=== PATIENT | female | born 1985 | race Caucasian/White ===

== ENCOUNTER 2018-09-30 23:54 | Emergency (ER) | payer OTHER ==
[2018-10-01] MEDS ORDERED: SODIUM CHLORIDE 0.9% 500 ML 500 ML IV STA (00:28)
[2018-10-01] MEDS ORDERED: SODIUM CHLORIDE 0.9% 1,000 ML IV STA (00:28)
--- NOTE | 2018-10-01 00:28 | ED ---
Psych HPI - General Source: patient, police, EMS, RN notes reviewed, old records reviewed Mode of arrival: ambulatory - History of Present Illness MD Complaint: suicidal ideation, feels depressed, other (Mildly responsive currently is a poor historian) -: unknown Associated Psychiatric Symptoms: depression, suicidal ideation History of same: Yes Quality: getting worse Improves With: none Worsens With: none Context: recent drug abuse Treatments Prior to Arrival: placed on mental health hold If Self Harm: has acted on plan <Jamie Larry - Last Filed: 10/01/18 03:44> <Raimundo Tanner - Last Filed: 10/01/18 15:46> - General Chief Complaint: Psychiatric Symptoms Stated Complaint: Mental Health Time Seen by Provider: 10/01/18 00:00 - History of Present Illness Initial Comments: This is a 33-year-old female the ER for evaluation. Patient has history of PTSD coming in with polysubstance overdose with suicide attempt. Patient overdosing on Xanax and alcohol. Patient is on was mildly responsive secondary to intoxication currently. But is protecting airway, good pulse ox (Jamie Larry) - Related Data Allergies Allergy/AdvReac Type Severity Reaction Status Date / Time No Known Allergies Allergy Verified 10/01/18 10:08 Review of Systems ROS Other: All systems not noted in ROS Statement are negative. <Jamie Larry - Last Filed: 10/01/18 03:44> ROS Other: All systems not noted in ROS Statement are negative. <Raimundo Tanner - Last Filed: 10/01/18 15:46> ROS Statement: Those systems with pertinent positive or pertinent negative responses have been documented in the HPI. Past Medical History Additional Past Medical History / Comment(s): anxiety History of Any Multi-Drug Resistant Organisms: None Reported Past Surgical History: No Surgical Hx Reported Past Psychological History: Anxiety Smoking Status: Current every day smoker Past Alcohol Use History: Occasional Past Drug Use History: None Reported <Jamie Larry - Last Filed: 10/01/18 03:44> General Exam Limitations: no limitations General appearance: alert, in no apparent distress, lethargic Head exam: Present: atraumatic, normocephalic, normal inspection Eye exam: Present: normal appearance, PERRL, EOMI. Absent: scleral icterus, conjunctival injection, periorbital swelling ENT exam: Present: normal exam, mucous membranes moist Neck exam: Present: normal inspection. Absent: tenderness, meningismus, lymphadenopathy Respiratory exam: Present: normal lung sounds bilaterally. Absent: respiratory distress, wheezes, rales, rhonchi, stridor Cardiovascular Exam: Present: regular rate, normal rhythm, normal heart sounds. Absent: systolic murmur, diastolic murmur, rubs, gallop, clicks GI/Abdominal exam: Present: soft, normal bowel sounds. Absent: distended, tenderness, guarding, rebound, rigid Extremities exam: Present: normal inspection, full ROM, normal capillary refill. Absent: tenderness, pedal edema, joint swelling, calf tenderness Back exam: Present: normal inspection Neurological exam: Present: alert, oriented X3, CN II-XII intact Psychiatric exam: Present: normal affect, normal mood Skin exam: Present: warm, dry, intact, normal color. Absent: rash <Jamie Larry - Last Filed: 10/01/18 03:44> Vital Signs 10/01/18 10/01/18 10/01/18 00:02 00:40 00:59 Temperature 98.2 F Pulse Rate 103 H 84 89 Respiratory 20 20 20 Rate Blood Pressure 126/78 109/62 104/69 O2 Sat by Pulse 99 100 98 Oximetry 10/01/18 10/01/18 10/01/18 01:06 02:00 03:00 Temperature Pulse Rate 84 81 85 Respiratory 20 20 20 Rate Blood Pressure 110/65 109/64 107/63 O2 Sat by Pulse 99 100 97 Oximetry 10/01/18 10/01/18 10/01/18 04:00 05:00 06:00 Temperature Pulse Rate 81 84 74 Respiratory 20 18 18 Rate Blood Pressure 118/80 117/65 118/84 O2 Sat by Pulse 98 97 100 Oximetry 10/01/18 10/01/18 10/01/18 07:00 10:45 13:03 Temperature 97.4 F L Pulse Rate 106 H 80 78 Respiratory 18 16 18 Rate Blood Pressure 125/85 111/73 105/75 O2 Sat by Pulse 97 99 98 Oximetry Medical Decision Making - Lab Data Result diagrams: 10/01/18 00:15 10/01/18 00:15 - EKG Data -: EKG Interpreted by Me (EKG shows sinus rhythm rate of 84, MT 184, QRS 76, QTc 449) <Jamie Larry - Last Filed: 10/01/18 03:44> - Lab Data Result diagrams: 10/01/18 00:15 10/01/18 00:15 <Raimundo Tanner - Last Filed: 10/01/18 15:46> - Medical Decision Making Patient sent out to me by previous shift physician. Briefly, patient is a 33- year-old female presents with suicidal intent. She overdosed on multiple medications. He was pending sobriety and EPS recommendations. Patient is high suicide risk given mild AND attending today. Patient was sent by . Patient to be admitted to inpatient psychiatry. Likely, transferr to outside facility (Raimundo Tanner) - Lab Data Lab Results 10/01/18 10/01/18 10/01/18 Range/Units 00:15 00:15 00:15 WBC 7.5 (3.8-10.6) k/uL RBC 4.37 (3.80-5.40) m/uL Hgb 13.4 (11.4-16.0) gm/dL Hct 40.4 (34.0-46.0) % MCV 92.5 (80.0-100.0) fL MCH 30.7 (25.0-35.0) pg MCHC 33.1 (31.0-37.0) g/dL RDW 12.8 (11.5-15.5) % Plt Count 199 (150-450) k/uL Neutrophils % 62 % Lymphocytes % 31 % Monocytes % 4 % Eosinophils % 1 % Basophils % 1 % Neutrophils # 4.6 (1.3-7.7) k/uL Lymphocytes # 2.3 (1.0-4.8) k/uL Monocytes # 0.3 (0-1.0) k/uL Eosinophils # 0.1 (0-0.7) k/uL Basophils # 0.1 (0-0.2) k/uL PT (9.0-12.0) sec INR (<1.2) Sodium 144 (137-145) mmol/L Potassium 3.8 (3.5-5.1) mmol/L Chloride 111 H (98-107) mmol/L Carbon Dioxide 25 (22-30) mmol/L Anion Gap 8 mmol/L BUN 6 L (7-17) mg/dL Creatinine 0.62 (0.52-1.04) mg/dL Est GFR (CKD-EPI)AfAm >90 (>60 ml/min/1.73 sqM) Est GFR (CKD-EPI)NonAf >90 (>60 ml/min/1.73 sqM) Glucose 90 (74-99) mg/dL Calcium 9.1 (8.4-10.2) mg/dL Total Bilirubin 0.4 (0.2-1.3) mg/dL AST 20 (14-36) U/L ALT 23 (9-52) U/L Alkaline Phosphatase 35 L (38-126) U/L Total Creatine Kinase 153 H (30-135) U/L CK-MB (CK-2) 0.7 (0.0-2.4) ng/mL CK-MB (CK-2) Rel Index 0.5 Total Protein 6.9 (6.3-8.2) g/dL Albumin 4.3 (3.5-5.0) g/dL Urine HCG, Qual (Not Detectd) Salicylates <1.0 mg/dL Urine Opiates Screen (NotDetected) Ur Oxycodone Screen (NotDetected) Urine Methadone Screen (NotDetected) Ur Propoxyphene Screen (NotDetected) Acetaminophen <10.0 ug/mL Ur Barbiturates Screen (NotDetected) U Tricyclic Antidepress (NotDetected) Ur Phencyclidine Scrn (NotDetected) Ur Amphetamines Screen (NotDetected) U Methamphetamines Scrn (NotDetected) U Benzodiazepines Scrn (NotDetected) Urine Cocaine Screen (NotDetected) U Marijuana (THC) Screen (NotDetected) Serum Alcohol 192 mg/dL 10/01/18 10/01/18 10/01/18 Range/Units 00:15 00:30 00:30 WBC (3.8-10.6) k/uL RBC (3.80-5.40) m/uL Hgb (11.4-16.0) gm/dL Hct (34.0-46.0) % MCV (80.0-100.0) fL MCH (25.0-35.0) pg MCHC (31.0-37.0) g/dL RDW (11.5-15.5) % Plt Count (150-450) k/uL Neutrophils % % Lymphocytes % % Monocytes % % Eosinophils % % Basophils % % Neutrophils # (1.3-7.7) k/uL Lymphocytes # (1.0-4.8) k/uL Monocytes # (0-1.0) k/uL Eosinophils # (0-0.7) k/uL Basophils # (0-0.2) k/uL PT 11.0 (9.0-12.0) sec INR 1.0 (<1.2) Sodium (137-145) mmol/L Potassium (3.5-5.1) mmol/L Chloride (98-107) mmol/L Carbon Dioxide (22-30) mmol/L Anion Gap mmol/L BUN (7-17) mg/dL Creatinine (0.52-1.04) mg/dL Est GFR (CKD-EPI)AfAm (>60 ml/min/1.73 sqM) Est GFR (CKD-EPI)NonAf (>60 ml/min/1.73 sqM) Glucose (74-99) mg/dL Calcium (8.4-10.2) mg/dL Total Bilirubin (0.2-1.3) mg/dL AST (14-36) U/L ALT (9-52) U/L Alkaline Phosphatase (38-126) U/L Total Creatine Kinase (30-135) U/L CK-MB (CK-2) (0.0-2.4) ng/mL CK-MB (CK-2) Rel Index Total Protein (6.3-8.2) g/dL Albumin (3.5-5.0) g/dL Urine HCG, Qual Not Detected (Not Detectd) Salicylates mg/dL Urine Opiates Screen Not Detected (NotDetected) Ur Oxycodone Screen Not Detected (NotDetected) Urine Methadone Screen Not Detected (NotDetected) Ur Propoxyphene Screen Not Detected (NotDetected) Acetaminophen ug/mL Ur Barbiturates Screen Not Detected (NotDetected) U Tricyclic Antidepress Not Detected (NotDetected) Ur Phencyclidine Scrn Not Detected (NotDetected) Ur Amphetamines Screen Not Detected (NotDetected) U Methamphetamines Scrn Not Detected (NotDetected) U Benzodiazepines Scrn Detected H (NotDetected) Urine Cocaine Screen Not Detected (NotDetected) U Marijuana (THC) Screen Not Detected (NotDetected) Serum Alcohol mg/dL Disposition <Jamie Larry - Last Filed: 10/01/18 03:44> Time of Disposition: 15:46 - Out of Hospital Transfer - Req. Specs Out of Hospital Transfer - Requested Specifics: Other Non-Acute (psych unit) <Raimundo Tanner - Last Filed: 10/01/18 15:46> Clinical Impression: Suicide attempt Disposition: TRANSFER TO PSYCH HOSP/UNIT Condition: Fair Referrals: None,Stated [REFERRING] - 1-2 days
[2018-10-01 00:39] LABS: Basophils # (A) 0.1 k/uL (0-0.2); Basophils % (A) 1 %; Eosinophils # (A) 0.1 k/uL (0-0.7); Eosinophils % (A) 1 %; HCT 40.4 % (34.0-46.0); HGB 13.4 gm/dL (11.4-16.0); Lymphocytes # (A) 2.3 k/uL (1.0-4.8); Lymphocytes % (A) 31 %; MCH 30.7 pg (25.0-35.0); MCHC 33.1 g/dL (31.0-37.0); MCV 92.5 fL (80.0-100.0); Mean Platelet Volume 6.9; Monocytes # (A) 0.3 k/uL (0-1.0); Monocytes % (A) 4 %; Neutrophils # (A) 4.6 k/uL (1.3-7.7); Neutrophils % (A) 62 %; Platelet Count 199 k/uL (150-450); RBC 4.37 m/uL (3.80-5.40); RDW 12.8 % (11.5-15.5); WBC 7.5 k/uL (3.8-10.6)
[2018-10-01 00:51] LABS: ALT 23 U/L (9-52); AST 20 U/L (14-36); Acetaminophen <10.0 ug/mL; Albumin 4.3 g/dL (3.5-5.0); Alkaline Phosphatase 35 U/L (38-126); Anion Gap 8 mmol/L; Blood Urea Nitrogen 6 mg/dL (7-17); Calcium 9.1 mg/dL (8.4-10.2); Carbon Dioxide 25 mmol/L (22-30); Chloride 111 mmol/L (98-107); Glucose 90 mg/dL (74-99); Potassium 3.8 mmol/L (3.5-5.1); Salicylate <1.0 mg/dL; Sodium 144 mmol/L (137-145); Total Bilirubin 0.4 mg/dL (0.2-1.3); Total Protein 6.9 g/dL (6.3-8.2)
[2018-10-01 00:54] LABS: Alcohol 192 mg/dL
[2018-10-01 01:07] LABS: Amphetamine Screen,Urine Not Detected (NotDetected); Barbiturate Screen,Urine Not Detected (NotDetected); Benzodiazepines Screen,Urine Detected (NotDetected); Cocaine Screen,Urine Not Detected (NotDetected); Methadone Screen, Urine Not Detected (NotDetected); Opiate Screen,Urine Not Detected (NotDetected); Oxycodone Screen, Urine Not Detected (NotDetected); Phencyclidine Screen,Urine Not Detected (NotDetected); Tricyclic Antidepressant,Urine Not Detected (NotDetected); Urn Cannabinoid Scrn Not Detected (NotDetected)
[2018-10-01 01:09] LABS: Creatine Kinase MB 0.7 ng/mL (0.0-2.4)
[2018-10-01 07:02] VITALS: TEMP 97.4
[2018-10-01] MEDS ORDERED: NICOTINE 21MG/24HR PATCH TRANSDERM STA (16:58)
[2018-10-01 19:56] VITALS: BP 128/64; PULSE 102; RESP 14
== END 2018-10-01 22:00 ==
LOC: EC 23:54
DX: T42.4X2A Poisoning by benzodiazepines, intentional self-harm, initial encounter (principal); T51.92XA Toxic effect of unspecified alcohol, intentional self-harm, initial encounter; F32.9 Major depressive disorder, single episode, unspecified; F17.200 Nicotine dependence, unspecified, uncomplicated
CPT/HCPCS: 99285; 96360; 82075; 36415; 93005; 80053; 82550; 82553; 85025; 85610; 81025; 80306; 83520 ×2; 80320; S4990

== ENCOUNTER 2019-05-28 04:58 | Inpatient (IN) | payer OTHER ==
[2019-05-28] MEDS ORDERED: SODIUM CHLORIDE 0.9% 1,000 ML IV STA (05:05)
--- NOTE | 2019-05-28 05:15 | ED ---
Altered Mental Status HPI - General Stated Complaint: Overdose Time Seen by Provider: 05/28/19 05:05 Source: EMS Limitations: altered mental status - History of Present Illness Initial Comments: Patient is a 33-year-old woman brought by ambulance to be evaluated for altered mental status. It is reported that she had history of appearing similar when she had had an overdose of alcohol and Xanax.. She reportedly has history of PTSD and may have had suicide attempt on the previous occasion. The patient is not able to give history. History is from EMS to also reports that the patient does not have access to medications at home patient's family reportedly controls her access. She had reportedly been drinking earlier. MD Complaint: altered mental status -: unknown Severity: severe Context: history of similar presentation - Related Data Home Medications Medication Instructions Recorded Confirmed ALPRAZolam [Xanax] 0.25 mg PO DAILY PRN 05/28/19 05/28/19 FLUoxetine HCL [PROzac] 40 mg PO DAILY 05/28/19 05/28/19 Medroxyprogesterone Acetate 150 mg IM Q90D 05/28/19 05/28/19 [Depo-Provera] Allergies Allergy/AdvReac Type Severity Reaction Status Date / Time No Known Allergies Allergy Verified 05/28/19 09:26 Review of Systems ROS Statement: Those systems with pertinent positive or pertinent negative responses have been documented in the HPI. ROS Other: All systems not noted in ROS Statement are negative. Gastrointestinal: Reports: vomiting Psychiatric: Reports: suicidal thoughts, other (PTSD) Past Medical History Additional Past Medical History / Comment(s): anxiety History of Any Multi-Drug Resistant Organisms: None Reported Past Surgical History: No Surgical Hx Reported Past Psychological History: Anxiety Smoking Status: Current every day smoker Past Alcohol Use History: Occasional Past Drug Use History: None Reported - Past Family History Father Family Medical History: Coronary Artery Disease (CAD) Additional Family Medical History / Comment(s): Father has had coronary stents/CABG Mother Family Medical History: No Reported History Additional Family Medical History / Comment(s): Mother is healthy. General Exam General appearance: obtunded Head exam: Present: atraumatic, normocephalic Eye exam: Present: PERRL, nystagmus. Absent: scleral icterus, conjunctival injection ENT exam: Present: normal oropharynx Neck exam: Present: normal inspection, full ROM, other (No bony tenderness or deformity). Absent: tenderness, meningismus Respiratory exam: Present: normal lung sounds bilaterally. Absent: respiratory distress, wheezes, rales, rhonchi, stridor Cardiovascular Exam: Present: regular rate, normal rhythm, normal heart sounds. Absent: systolic murmur, diastolic murmur, rubs, gallop GI/Abdominal exam: Present: soft. Absent: distended, tenderness, guarding, rebound, rigid, mass Extremities exam: Present: normal inspection, normal capillary refill. Absent: pedal edema, calf tenderness Back exam: Present: normal inspection. Absent: vertebral tenderness Neurological exam: Present: altered, CN II-XII intact, other (Patient is not able to cooperate with the neurologic exam however she has no apparent focal neural deficit. Patient GCS is 11(E=4, V=2, M=5).). Absent: motor sensory deficit Skin exam: Present: warm, dry, intact, normal color. Absent: rash Course Vital Signs 05/28/19 05/28/19 05/28/19 05:02 05:20 05:23 Temperature Pulse Rate 92 Respiratory 16 16 Rate Blood Pressure 155/87 O2 Sat by Pulse 96 98 Oximetry 05/28/19 05/28/19 05/28/19 05:40 06:00 06:10 Temperature Pulse Rate 101 H 84 86 Respiratory 16 16 Rate Blood Pressure 119/73 126/84 122/82 O2 Sat by Pulse 99 100 99 Oximetry 05/28/19 05/28/19 05/28/19 06:20 06:30 06:40 Temperature 97.9 F Pulse Rate 92 Respiratory 16 Rate Blood Pressure 120/93 120/93 143/97 O2 Sat by Pulse 100 98 Oximetry 05/28/19 05/28/19 07:21 08:30 Temperature Pulse Rate 88 112 H Respiratory 16 12 Rate Blood Pressure 144/97 122/84 O2 Sat by Pulse 99 99 Oximetry - Reevaluation(s) Reevaluation #1: 05/28/19 07:24 Case is discussed with Dr. Song who will admit the patient. And also with Dr. Garcia for intensive care management. On reevaluation, patient is clearing somewhat. She is able to state the name of her friend's son. Medical Decision Making - Lab Data Result diagrams: 05/29/19 04:32 05/29/19 04:30 Lab Results 05/28/19 05/28/19 05/28/19 Range/Units 05:11 05:19 05:19 WBC 11.0 H (3.8-10.6) k/uL RBC 4.76 (3.80-5.40) m/uL Hgb 14.5 (11.4-16.0) gm/dL Hct 44.1 (34.0-46.0) % MCV 92.6 (80.0-100.0) fL MCH 30.5 (25.0-35.0) pg MCHC 33.0 (31.0-37.0) g/dL RDW 13.1 (11.5-15.5) % Plt Count 196 (150-450) k/uL Neutrophils % 78 % Lymphocytes % 17 % Monocytes % 3 % Eosinophils % 1 % Basophils % 1 % Neutrophils # 8.5 H (1.3-7.7) k/uL Lymphocytes # 1.9 (1.0-4.8) k/uL Monocytes # 0.3 (0-1.0) k/uL Eosinophils # 0.1 (0-0.7) k/uL Basophils # 0.1 (0-0.2) k/uL Sodium 143 (137-145) mmol/L Potassium 3.5 (3.5-5.1) mmol/L Chloride 111 H (98-107) mmol/L Carbon Dioxide 22 (22-30) mmol/L Anion Gap 10 mmol/L BUN 5 L (7-17) mg/dL Creatinine 0.58 (0.52-1.04) mg/dL Est GFR (CKD-EPI)AfAm >90 (>60 ml/min/1.73 sqM) Est GFR (CKD-EPI)NonAf >90 (>60 ml/min/1.73 sqM) Glucose 135 H (74-99) mg/dL POC Glucose (mg/dL) 140 H (75-99) mg/dL POC Glu Search Engine [employer] Specialist ID Janki Cuadra Lactic Ac Sepsis Rflx Plasma Lactic Acid Charly (0.7-2.0) mmol/L Calcium 8.6 (8.4-10.2) mg/dL Total Bilirubin <0.1 L (0.2-1.3) mg/dL AST 18 (14-36) U/L ALT 18 (9-52) U/L Alkaline Phosphatase 44 (38-126) U/L Troponin I (0.000-0.034) ng/mL Total Protein 6.0 L (6.3-8.2) g/dL Albumin 3.8 (3.5-5.0) g/dL Urine Color Urine Appearance (Clear) Urine pH (5.0-8.0) Ur Specific [place] (1.001-1.035) Urine Protein (Negative) Urine Glucose (UA) (Negative) Urine Ketones (Negative) Urine Blood (Negative) Urine Nitrite (Negative) Urine Bilirubin (Negative) Urine Urobilinogen (<2.0) mg/dL Ur Leukocyte Esterase (Negative) Urine HCG, Qual (Not Detectd) Salicylates <1.0 mg/dL Urine Opiates Screen (NotDetected) Ur Oxycodone Screen (NotDetected) Urine Methadone Screen (NotDetected) Ur Propoxyphene Screen (NotDetected) Acetaminophen <10.0 ug/mL Ur Barbiturates Screen (NotDetected) U Tricyclic Antidepress (NotDetected) Ur Phencyclidine Scrn (NotDetected) Ur Amphetamines Screen (NotDetected) U Methamphetamines Scrn (NotDetected) U Benzodiazepines Scrn (NotDetected) Urine Cocaine Screen (NotDetected) U Marijuana (THC) Screen (NotDetected) Serum Alcohol 40 mg/dL 05/28/19 05/28/19 05/28/19 Range/Units 05:19 05:19 05:49 WBC (3.8-10.6) k/uL RBC (3.80-5.40) m/uL Hgb (11.4-16.0) gm/dL Hct (34.0-46.0) % MCV (80.0-100.0) fL MCH (25.0-35.0) pg MCHC (31.0-37.0) g/dL RDW (11.5-15.5) % Plt Count (150-450) k/uL Neutrophils % % Lymphocytes % % Monocytes % % Eosinophils % % Basophils % % Neutrophils # (1.3-7.7) k/uL Lymphocytes # (1.0-4.8) k/uL Monocytes # (0-1.0) k/uL Eosinophils # (0-0.7) k/uL Basophils # (0-0.2) k/uL Sodium (137-145) mmol/L Potassium (3.5-5.1) mmol/L Chloride (98-107) mmol/L Carbon Dioxide (22-30) mmol/L Anion Gap mmol/L BUN (7-17) mg/dL Creatinine (0.52-1.04) mg/dL Est GFR (CKD-EPI)AfAm (>60 ml/min/1.73 sqM) Est GFR (CKD-EPI)NonAf (>60 ml/min/1.73 sqM) Glucose (74-99) mg/dL POC Glucose (mg/dL) (75-99) mg/dL POC Glu Search Engine Marketing Specialist ID Lactic Ac Sepsis Rflx Plasma Lactic Acid Charly 2.8 H* (0.7-2.0) mmol/L Calcium (8.4-10.2) mg/dL Total Bilirubin (0.2-1.3) mg/dL AST (14-36) U/L ALT (9-52) U/L Alkaline Phosphatase (38-126) U/L Troponin I <0.012 (0.000-0.034) ng/mL Total Protein (6.3-8.2) g/dL Albumin (3.5-5.0) g/dL Urine Color Urine Appearance (Clear) Urine pH (5.0-8.0) Ur Specific [place] (1.001-1.035) Urine Protein (Negative) Urine Glucose (UA) (Negative) Urine Ketones (Negative) Urine Blood (Negative) Urine Nitrite (Negative) Urine Bilirubin (Negative) Urine Urobilinogen (<2.0) mg/dL Ur Leukocyte Esterase (Negative) Urine HCG, Qual (Not Detectd) Salicylates mg/dL Urine Opiates Screen Not Detected (NotDetected) Ur Oxycodone Screen Not Detected (NotDetected) Urine Methadone Screen Not Detected (NotDetected) Ur Propoxyphene Screen Not Detected (NotDetected) Acetaminophen ug/mL Ur Barbiturates Screen Not Detected (NotDetected) U Tricyclic Antidepress Not Detected (NotDetected) Ur Phencyclidine Scrn Not Detected (NotDetected) Ur Amphetamines Screen Not Detected (NotDetected) U Methamphetamines Scrn Not Detected (NotDetected) U Benzodiazepines Scrn Detected H (NotDetected) Urine Cocaine Screen Not Detected (NotDetected) U Marijuana (THC) Screen Not Detected (NotDetected) Serum Alcohol mg/dL 05/28/19 05/28/19 05/28/19 Range/Units 05:49 05:49 06:19 WBC (3.8-10.6) k/uL RBC (3.80-5.40) m/uL Hgb (11.4-16.0) gm/dL Hct (34.0-46.0) % MCV (80.0-100.0) fL MCH (25.0-35.0) pg MCHC (31.0-37.0) g/dL RDW (11.5-15.5) % Plt Count (150-450) k/uL Neutrophils % % Lymphocytes % % Monocytes % % Eosinophils % % Basophils % % Neutrophils # (1.3-7.7) k/uL Lymphocytes # (1.0-4.8) k/uL Monocytes # (0-1.0) k/uL Eosinophils # (0-0.7) k/uL Basophils # (0-0.2) k/uL Sodium (137-145) mmol/L Potassium (3.5-5.1) mmol/L Chloride (98-107) mmol/L Carbon Dioxide (22-30) mmol/L Anion Gap mmol/L BUN (7-17) mg/dL Creatinine (0.52-1.04) mg/dL Est GFR (CKD-EPI)AfAm (>60 ml/min/1.73 sqM) Est GFR (CKD-EPI)NonAf (>60 ml/min/1.73 sqM) Glucose (74-99) mg/dL POC Glucose (mg/dL) (75-99) mg/dL POC Glu Search Engine Marketing Specialist ID Lactic Ac Sepsis Rflx Y Plasma Lactic Acid Charly (0.7-2.0) mmol/L Calcium (8.4-10.2) mg/dL Total Bilirubin (0.2-1.3) mg/dL AST (14-36) U/L ALT (9-52) U/L Alkaline Phosphatase (38-126) U/L Troponin I (0.000-0.034) ng/mL Total Protein (6.3-8.2) g/dL Albumin (3.5-5.0) g/dL Urine Color Light Yellow Urine Appearance Clear (Clear) Urine pH 5.5 (5.0-8.0) Ur Specific [place] 1.009 (1.001-1.035) Urine Protein Negative (Negative) Urine Glucose (UA) Negative (Negative) Urine Ketones Negative (Negative) Urine Blood Negative (Negative) Urine Nitrite Negative (Negative) Urine Bilirubin Negative (Negative) Urine Urobilinogen <2.0 (<2.0) mg/dL Ur Leukocyte Esterase Negative (Negative) Urine HCG, Qual Not Detected (Not Detectd) Salicylates mg/dL Urine Opiates Screen (NotDetected) Ur Oxycodone Screen (NotDetected) Urine Methadone Screen (NotDetected) Ur Propoxyphene Screen (NotDetected) Acetaminophen ug/mL Ur Barbiturates Screen (NotDetected) U Tricyclic Antidepress (NotDetected) Ur Phencyclidine Scrn (NotDetected) Ur Amphetamines Screen (NotDetected) U Methamphetamines Scrn (NotDetected) U Benzodiazepines Scrn (NotDetected) Urine Cocaine Screen (NotDetected) U Marijuana (THC) Screen (NotDetected) Serum Alcohol mg/dL - EKG Data -: EKG Interpreted by Me EKG shows normal: sinus rhythm, axis (Normal), intervals (Normal), QRS complexes (Normal) Rate: normal (Rate 95 bpm) Critical Care Time Critical Care Time: Yes (40 minutes) Disposition Clinical Impression: Altered mental status, Overdose, Lactic acidosis Disposition: ADMITTED IP TO [facility] Condition: Serious
[2019-05-28] MEDS ORDERED: METOCLOPRAMIDE 5 MG/ML 2 ML VIAL IVP STA (05:21)
[2019-05-28 05:22] LABS: Glucose,Whole Blood 140 mg/dL (75-99)
[2019-05-28 05:38] LABS: Basophils # (A) 0.1 k/uL (0-0.2); Basophils % (A) 1 %; Eosinophils # (A) 0.1 k/uL (0-0.7); Eosinophils % (A) 1 %; HCT 44.1 % (34.0-46.0); HGB 14.5 gm/dL (11.4-16.0); Lymphocytes # (A) 1.9 k/uL (1.0-4.8); Lymphocytes % (A) 17 %; MCH 30.5 pg (25.0-35.0); MCV 92.6 fL (80.0-100.0); Mean Platelet Volume 7.5; Monocytes # (A) 0.3 k/uL (0-1.0); Monocytes % (A) 3 %; Neutrophils # (A) 8.5 k/uL (1.3-7.7); Neutrophils % (A) 78 %; Platelet Count 196 k/uL (150-450); RBC 4.76 m/uL (3.80-5.40); RDW 13.1 % (11.5-15.5)
[2019-05-28 05:50] LABS: ALT 18 U/L (9-52); AST 18 U/L (14-36); Acetaminophen <10.0 ug/mL; African American GFR (CKD) >90 (>60 ml/min/1.73 sqM); Albumin 3.8 g/dL (3.5-5.0); Alcohol 40 mg/dL; Alkaline Phosphatase 44 U/L (38-126); Anion Gap 10 mmol/L; Blood Urea Nitrogen 5 mg/dL (7-17); Calcium 8.6 mg/dL (8.4-10.2); Carbon Dioxide 22 mmol/L (22-30); Chloride 111 mmol/L (98-107); Glucose 135 mg/dL (74-99); Potassium 3.5 mmol/L (3.5-5.1); Salicylate <1.0 mg/dL; Sodium 143 mmol/L (137-145); Total Bilirubin <0.1 mg/dL (0.2-1.3)
[2019-05-28 06:05] LABS: Amphetamine Screen,Urine Not Detected (NotDetected); Barbiturate Screen,Urine Not Detected (NotDetected); Benzodiazepines Screen,Urine Detected (NotDetected); Cocaine Screen,Urine Not Detected (NotDetected); Methadone Screen, Urine Not Detected (NotDetected); Opiate Screen,Urine Not Detected (NotDetected); Oxycodone Screen, Urine Not Detected (NotDetected); Phencyclidine Screen,Urine Not Detected (NotDetected); Tricyclic Antidepressant,Urine Not Detected (NotDetected); Urn Cannabinoid Scrn Not Detected (NotDetected)
--- NOTE | 2019-05-28 06:16 | XR ---
EXAMINATION TYPE: XR chest 1V portable DATE OF EXAM: 05/28/2019 COMPARISON: NONE HISTORY: Altered mental status TECHNIQUE: Single frontal view of the chest is obtained. FINDINGS: Heart and mediastinum are normal. Lungs are clear of infiltrate. There are chest leads. Th ere is no pleural effusion. Bony thorax is intact. IMPRESSION: No active cardiopulmonary disease. Normal heart.
[2019-05-28] MEDS ORDERED: SODIUM CHLORIDE 0.9% 1,800 ML IV ONE (06:19)
--- NOTE | 2019-05-28 06:43 | CT ---
EXAMINATION TYPE: CT brain adolfo edmondson DATE OF EXAM: 05/28/2019 COMPARISON: None HISTORY: overdose Weakness. Neck pain. CT DLP: 1304.10 mGycm Automated exposure control for dose reduction was used. TECHNIQUE: CT scan of the head and cervical spine are performed without contrast. FINDINGS: Ventricles have normal size. There is no mass effect nor midline shift. There is no sign of intracranial hemorrhage. The calvarium is intact. There is no evidence of cerebral edema. Cervical vertebra have normal spacing and alignment. Posterior elements are intact. Facet joints appe ar normal. Skull base is intact. There is no evidence of a fracture. IMPRESSION: Negative CT scan cervical spine. Negative CT scan of the brain.
[2019-05-28] MEDS ORDERED: NALOXONE 0.4 MG/ML 1 ML VIAL IV PRN (07:02)
[2019-05-28 07:15] LABS: Appearance,Urine Clear (Clear); Bilirubin,Urine Negative (Negative); Blood,Urine Negative (Negative); Color,Urine Light Yellow; Glucose,Urine (UA) Negative (Negative); Ketones,Urine Negative (Negative); Leukocyte Esterase,Urine Negative (Negative); Nitrite,Urine Negative (Negative); PH, Urine 5.5 (5.0-8.0); Protein,Urine Negative (Negative); Specific Gravity,Urine 1.009 (1.001-1.035); Urobilinogen,Urine <2.0 mg/dL (<2.0)
[2019-05-28] MEDS: SODIUM CHLORIDE 0.9% 1,000 ML IV SCH ×2 (07:21→20:30)
[2019-05-28 08:49] LABS: Glucose,Whole Blood 119 mg/dL (75-99)
[2019-05-28] MEDS: CLOTRIMAZOLE 1% CREAM 15 GM TUBE TOPICAL SCH ×2 (09:18→20:36)
[2019-05-28] MEDS: ONDANSETRON 4 MG/2 ML VIAL IVP PRN ×2 (09:21→17:57)
--- NOTE | 2019-05-28 12:05 | P.CNPUL ---
History of Present Illness Consult date: 05/28/19 Requesting physician: Elbert Kang Jr Reason for consult: other (Altered mental status) Chief complaint: Altered mental status History of present illness: This is a 33-year-old female with history of alcohol abuse, history of substance abuse, history of posttraumatic shock disorder, history of depression, patient was found by her confused, and apparently she has been taking Xanax and drinking alcohol. Patient was brought into the ER, and she had positive drug screen for benzodiazepines and alcohol. Patient was confused, unable to give any history, had a similar presentation back in September of 2018, were and she presented at the time with suicidal ideations and in 10. She overdosed on multiple medications at the time, and she was admitted to a psychiatric unit. This time, there is no mention of suicidal thoughts or suicidal ideations, but clearly the patient had positive drug screen as noted above. The patient herself cannot give any history, seems to be quite confused, and not in respiratory distress. Hence the patient was admitted to the ICU, CT head and cervical spine done prior to admission to the ICU was negative. Review of Systems ROS unobtainable: due to mental status Past Medical History Past Medical History: Skin Disorder Additional Past Medical History / Comment(s): Currently has fungal skin infection-never picked up prescribed medication to treat. History of Any Multi-Drug Resistant Organisms: None Reported Past Surgical History: No Surgical Hx Reported Past Anesthesia/Blood Transfusion Reactions: Unable to Obtain Additional Past Anesthesia/Blood Transfusion Reaction / Comment(s): Pt has never had surgery. Smoking Status: Current every day smoker - Past Family History Father Family Medical History: Coronary Artery Disease (CAD) Additional Family Medical History / Comment(s): Father has had coronary stents/CABG Mother Family Medical History: No Reported History Additional Family Medical History / Comment(s): Mother is healthy. Medications and Allergies Home Medications Medication Instructions Recorded Confirmed Type ALPRAZolam [Xanax] 0.25 mg PO DAILY PRN 05/28/19 05/28/19 History FLUoxetine HCL [PROzac] 40 mg PO DAILY 05/28/19 05/28/19 History Medroxyprogesterone Acetate 150 mg IM Q90D 05/28/19 05/28/19 History [Depo-Provera] Allergies Allergy/AdvReac Type Severity Reaction Status Date / Time No Known Allergies Allergy Verified 09/30/19 09:26 Physical Exam Vitals: Vital Signs Temp Pulse Resp BP Pulse Ox 05/28/19 10:00 100 18 115/67 98 05/28/19 09:45 117 H 22 131/106 05/28/19 09:39 98.6 F 115 H 12 131/106 98 05/28/19 08:45 12 05/28/19 08:30 112 H 12 122/84 99 05/28/19 07:21 88 16 144/97 99 05/28/19 06:40 97.9 F 92 16 143/97 98 05/28/19 06:30 120/93 100 05/28/19 06:20 120/93 05/28/19 06:10 86 122/82 99 05/28/19 06:00 84 16 126/84 100 05/28/19 05:40 101 H 16 119/73 99 05/28/19 05:23 16 05/28/19 05:20 92 16 155/87 98 05/28/19 05:02 96 Intake and Output 05/27/19 05/28/19 05/28/19 22:59 06:59 14:59 Intake Total 200 Output Total 2150 Balance -1950 Intake: IV 200 Sodium Chloride 0.9% 1, 200 000 ml @ 100 mls/hr IV . Q10H [facility] Rx#:[id number] Output: Urine 2150 Other: Voiding Method Indwelling Catheter Weight 63.503 kg General appearance: Revealed a 53-year-old female obtunded, in no distress. Head exam: Atraumatic, normocephalic Eye exam: PERRLA, EOMI, no icterus. ENT exam: Throat is clear. Moist mucous membranes, nasal mucosa is normal Neck exam: No neck masses, no neck rigidity, no stridor. Respiratory exam: Clear throughout, no crackles or rhonchi or wheezes, symmetrical chest expansion Cardiovascular Exam: Normal S1 and S2, no S3 gallop GI/Abdominal exam: Soft nontender no megaly no rebound no guarding Extremities exam: No clubbing edema or cyanosis. Back exam: : Unremarkable, no tenderness. Neurological exam: altered, CN II-XII intact, other (Patient is not able to cooperate with the neurologic exam Skin exam: No rashes Results - Laboratory Findings CBC and BMP: 05/28/19 05:19 05/28/19 05:19 Abnormal lab findings: Abnormal Labs 05/28/19 05/28/19 05/28/19 05:11 05:19 05:19 WBC 11.0 H Neutrophils # 8.5 H Chloride 111 H BUN 5 L Glucose 135 H POC Glucose (mg/dL) 140 H Plasma Lactic Acid Charly Total Bilirubin <0.1 L Total Protein 6.0 L U Benzodiazepines Scrn 05/28/19 05/28/19 05/28/19 05:19 05:49 08:37 WBC Neutrophils # Chloride BUN Glucose POC Glucose (mg/dL) 119 H Plasma Lactic Acid Charly 2.8 H* Total Bilirubin Total Protein U Benzodiazepines Scrn Detected H - Diagnostic Findings Additional studies: CT head and cervical spine is unremarkable. Assessment and Plan Assessment: Impression: 1 acute mental status change, secondary to acute alcohol intoxication and benzodiazepine overdose. 2 history of PTSD 3 history of depression 4 nonspecific lactic acidosis on presentation, resolved with hydration only. The patient may have had a seizure and could be having a postictal presentation. Recommendation: Continue supportive care measures in the ICU, continue to monitor closely, placed on the alcohol withdrawal protocol, placed on suicidal precautions, we will consult neurology. We'll continue to follow. Time with Patient: Greater than 30
[2019-05-28] MEDS ORDERED: LORazepam 2 MG/ML INJ IV PRN ×4 (13:47→23:21)
--- NOTE | 2019-05-28 13:51 | P.CNNES ---
History of Present Illness Consult date: 05/28/19 Reason for Consult: Possible seizure, benzodiazepine overdose History of Present Illness: REFERRING PHYSICIAN: Dr. Garland Perera HISTORY OF PRESENT ILLNESS: Thank you for allowing me to evaluate Ms. Reigna Nguyen. Ms. Nguyen is a 33 year-old woman with PMHx of anxiety brought in by ambulance for altered mental status, consulting neurology for possible seizure and benzodiazepine overdose. Patient's is at bedside for corroborating information. Patient is also able to provide limited information but difficult as patient very drowsy. states that last night around 10 PM, patient most likely took his bipolar medication, lamotrigine. believes that she took more than 100 pills of 100 mg lamotrigine. states that lamotrigine was not working for him, so he was waiting to return it, but patient overdosed on his somewhat regime. Patient's family reportedly controls patient's access to her medications because patient has a recent suicide attempt with overdosing on pills. Around 11 PM as when found the patient, just like how she looks right now in the ICU, but also with foaming in the mouth and some vomiting. states that patient had sweated profusely, soaking through her clothes and the couch. It's possible that she has urinary incontinence but difficult to tell. During evaluation, patient is able to state, "I took many pills" in a whisper. Patient denies any headache, nausea, vomiting, dizziness, pain. Evaluation is limited due to patient's drowsiness. At the beginning of the evaluation, patient was able to show me 2 fingers on her right hand and her left thumb. But with progression of the evaluation, patient became increasingly weaker. PAST MEDICAL HISTORY: Anxiety, PTSD, previous suicide attempt PAST SURGICAL HISTORY: None reported HOME MEDICATIONS: Xanax 0.25 mg daily when necessary, fluoxetine, Depo-Provera ALLERGIES: No known ALLERGIES SOCIAL HISTORY: Current every day smoker. Occasional alcohol use. REVIEW OF SYSTEMS: The 14 systems are reviewed and no additional points are identified compared to the review of systems documented history and physical PHYSICAL EXAMINATION: VITAL SIGNS: T 98.6 HR 115 blood pressure 131/106 O2 saturation 98% on room air GEN.: Drowsy but following most commands, cooperative HEENT: NCAT, sclera without icterus NECK: Supple SKIN AND EXTREMITIES: Warm to touch, no edema NEURO: MENTAL STATUS: Patient alert and oriented to self, place, time. Able to name the current president. Speech grossly fluent, but very limited. CRANIAL NERVES II THROUGH XII: II: Pupils are equal and reactive to light symmetrically. No afferent pupillary defect. III, IV, : No ptosis. Primary gaze with eyes down and out, roaming eyes, pt not tracking. V: Facial sensation intact from V1-3. VII. No clear facial asymmetry. XII: Tongue midline without fasciculation or atrophy. MOTOR: Normal bulk/tone. b/l UE intermittently antigravity. No movement noted in b/l LE SENSORY: Grimaces to pain in all 4 extremities but no withdrawal REFLEXES: 2+ in b/l UE. Brisk in b/l LE. Toes are upgoing b/l. sustained clonus. Avinash's is absent COORDINATION: deferred GAIT: deferred DIAGNOSTIC TESTING: LABORATORY: WBC 11.0 hemoglobin 14.5 platelet 196 sodium 143 potassium 3.5 chloride 111 bicarb 22 BUN 5 creatinine 0.58 glucose 135 lactic acid 2.8 AST 18 ALT 18 troponin <0.012 urinalysis neg UTox benzo positive IMAGING: CT head and cervical spine without contrast 05/28/2019: Negative computed tomography scan of cervical spine and brain. ASSESSMENT: Ms. Nguyen is a 33 year-old woman with PMHx of anxiety brought in by ambulance for altered mental status, consulting neurology for possible seizure and benzodiazepine overdose, discovered patient overdosed on lamotrigine. Lamotrigine overdose can cause seizure including status epilepticus along with c ardiac toxicity, [employer] depression. Pt at this time following commands although with significant drowsiness. Exam also showing abnormal primary gaze along with brisk reflexes in the LE, sustained clonus and upgoing toes, which all could be found in the setting of lamotrigine overdose. RECOMMENDATIONS: 1. Check lamotrigine level 2. Seizure precaution 3. neurocheck q1h 4. Ativan 2mg IV x1 PRN if patient having any seizure-like activity, repeat if patient continues to have seizure-like activity for more than 3 minutes and repeat 3 times, and if not resolved, call Neurology 5. Low threshold for considering status epilepticus. Patient should be transferred to either [facility] or [facility] if there's concern of status. 6. Neurology will continue to follow Past Medical History Past Medical History: Skin Disorder Additional Past Medical History / Comment(s): Currently has fungal skin infection-never picked up prescribed medication to treat. History of Any Multi-Drug Resistant Organisms: None Reported Past Surgical History: No Surgical Hx Reported Past Anesthesia/Blood Transfusion Reactions: Unable to Obtain Additional Past Anesthesia/Blood Transfusion Reaction / Comment(s): Pt has never had surgery. Smoking Status: Current every day smoker - Past Family History Father Family Medical History: Coronary Artery Disease (CAD) Additional Family Medical History / Comment(s): Father has had coronary stents/CABG Mother Family Medical History: No Reported History Additional Family Medical History / Comment(s): Mother is healthy. Medications and Allergies Home Medications Medication Instructions Recorded Confirmed Type ALPRAZolam [Xanax] 0.25 mg PO DAILY PRN 05/28/19 05/28/19 History FLUoxetine HCL [PROzac] 40 mg PO DAILY 05/28/19 05/28/19 History Medroxyprogesterone Acetate 150 mg IM Q90D 05/28/19 05/28/19 History [Depo-Provera] Allergies Allergy/AdvReac Type Severity Reaction Status Date / Time No Known Allergies Allergy Verified 05/28/19 09:26 Physical Examination - Vital Signs Vital Signs: Vital Signs Temp Pulse Resp BP Pulse Ox 05/28/19 09:39 98.6 F 115 H 12 131/106 98 05/28/19 08:45 12 05/28/19 08:30 112 H 12 122/84 99 05/28/19 07:21 88 16 144/97 99 05/28/19 06:40 97.9 F 92 16 143/97 98 05/28/19 06:30 120/93 100 05/28/19 06:20 120/93 05/28/19 06:10 86 122/82 99 05/28/19 06:00 84 16 126/84 100 05/28/19 05:40 101 H 16 119/73 99 05/28/19 05:23 16 05/28/19 05:20 92 16 155/87 98 05/28/19 05:02 96 Intake and Output 05/27/19 05/28/19 05/28/19 22:59 06:59 14:59 Intake Total 100 Output Total 1900 Balance -1800 Intake: IV 100 Sodium Chloride 0.9% 1, 100 000 ml @ 100 mls/hr IV . Q10H [facility] Rx#:[id number] Output: Urine 1900 Other: Voiding Method Indwelling Catheter Weight 63.503 kg Results - Laboratory Findings CBC and BMP: 05/28/19 05:19 05/28/19 05:19 Abnormal Lab Findings: Abnormal Labs 05/28/19 05/28/19 05/28/19 05:11 05:19 05:19 WBC 11.0 H Neutrophils # 8.5 H Chloride 111 H BUN 5 L Glucose 135 H POC Glucose (mg/dL) 140 H Plasma Lactic Acid Charly Total Bilirubin <0.1 L Total Protein 6.0 L U Benzodiazepines Scrn 05/28/19 05/28/19 05/28/19 05:19 05:49 08:37 WBC Neutrophils # Chloride BUN Glucose POC Glucose (mg/dL) 119 H Plasma Lactic Acid Charly 2.8 H* Total Bilirubin Total Protein U Benzodiazepines Scrn Detected H
--- NOTE | 2019-05-28 16:28 | P.HPIM ---
History of Present Illness H&P Date: 05/28/19 Chief Complaint: Intentional overdose This is a 33-year-old white female history of posttraumatic stress disorder and depression. Her medications have been controlled by her family, due to intentional overdose and suicide attempt in September 2018. Per her 's history, her sister and mom, who are currently at bedside, patient apparently took the 's Lamictal approximately 100 tablets of 100 mg each. This happened around 10 PM last night. She was found obtunded foaming at the mouth and sweating profusely. EMS was called she was brought to [facility] emergency room. She been admitted to the intensive care unit this time for supportive care. She is reportedly to vomit in the emergency room. So far labs only been abnormal regarding positive benzodiazepines, and abnormal lactic acid. She currently fights against restraints and is speaking somewhat. She is awake but obviously obtunded. Staff report nummular lesions to the abdomen that are erythematous with clearing centers. Review of Systems ROS unobtainable: due to mental status Past Medical History Past Medical History: Skin Disorder Additional Past Medical History / Comment(s): Currently has fungal skin infection-never picked up prescribed medication to treat. History of Any Multi-Drug Resistant Organisms: None Reported Past Surgical History: No Surgical Hx Reported Past Anesthesia/Blood Transfusion Reactions: Unable to Obtain Additional Past Anesthesia/Blood Transfusion Reaction / Comment(s): Pt has never had surgery. Smoking Status: Current every day smoker - Past Family History Father Family Medical History: Coronary Artery Disease (CAD) Additional Family Medical History / Comment(s): Father has had coronary stents/CABG Mother Family Medical History: No Reported History Additional Family Medical History / Comment(s): Mother is healthy. Medications and Allergies Home Medications Medication Instructions Recorded Confirmed Type ALPRAZolam [Xanax] 0.25 mg PO DAILY PRN 05/28/19 05/28/19 History FLUoxetine HCL [PROzac] 40 mg PO DAILY 05/28/19 05/28/19 History Medroxyprogesterone Acetate 150 mg IM Q90D 05/28/19 05/28/19 History [Depo-Provera] Allergies Allergy/AdvReac Type Severity Reaction Status Date / Time No Known Allergies Allergy Verified 05/28/19 09:26 Physical Exam Vitals: Vital Signs Temp Pulse Resp BP Pulse Ox 05/28/19 14:00 101 H 16 138/98 95 05/28/19 13:00 101 H 20 133/88 96 05/28/19 12:00 98.8 F 110 H 18 127/86 97 05/28/19 11:00 118 H 20 141/69 97 05/28/19 10:00 100 18 115/67 98 05/28/19 09:45 117 H 22 131/106 05/28/19 09:39 98.6 F 115 H 12 131/106 98 05/28/19 08:45 12 05/28/19 08:30 112 H 12 122/84 99 05/28/19 07:21 88 16 144/97 99 05/28/19 06:40 97.9 F 92 16 143/97 98 05/28/19 06:30 120/93 100 05/28/19 06:20 120/93 05/28/19 06:10 86 122/82 99 05/28/19 06:00 84 16 126/84 100 05/28/19 05:40 101 H 16 119/73 99 05/28/19 05:23 16 05/28/19 05:20 92 16 155/87 98 05/28/19 05:02 96 Intake and Output 05/28/19 05/28/19 05/28/19 06:59 14:59 22:59 Intake Total 500 Output Total 2510 -2009 Intake: IV 500 Sodium Chloride 0.9% 1, 500 000 ml @ 100 mls/hr IV . Q10H [facility] Rx#:[id number] Output: Urine 2510 Other: Voiding Method Indwelling Catheter Weight 63.503 kg GENERAL: Awake, obtunded, restrained white female who looks her stated age. HEAD: Atraumatic, normocephalic. EYES: Pupils equal round and slow, but reactive to light, extraocular movements intact, sclera anicteric, conjunctiva are normal. ENT:nares patent, oropharynx clear without exudates. Moist mucous membranes. NECK: Passive Normal range of motion, supple without lymphadenopathy or JVD, no thyromegaly LUNGS: Breath sounds slightly coarse to auscultation bilaterally and equal. No wheezes rales or rhonchi. HEART: Regular rate and rhythm without murmurs, rubs or gallops.S1S2 Normal ABDOMEN: Soft, nontender, normoactive bowel sounds. No guarding, no rebound. No masses appreciated. EXTREMITIES: Normal range of motion, no pitting or edema. No clubbing or cyanosis. NEUROLOGICAL: Cranial nerves II through XII grossly intact. Normal speech, normal gait. PSYCH: Patient is awake, but obtunded SKIN: Warm, Dry, normal turgor, there are white nummular lesions 3 to her abdomen approximately 2 cm diameter. Consistent with clearing tinea cruris Results CBC & Chem 7: 05/28/19 05:19 05/28/19 05:19 Labs: Abnormal Lab Results - Last 24 Hours (Table) 05/28/19 05/28/19 05/28/19 Range/Units 05:11 05:19 05:19 WBC 11.0 H (3.8-10.6) k/uL Neutrophils # 8.5 H (1.3-7.7) k/uL Chloride 111 H (98-107) mmol/L BUN 5 L (7-17) mg/dL Glucose 135 H (74-99) mg/dL POC Glucose (mg/dL) 140 H (75-99) mg/dL Plasma Lactic Acid Charly (0.7-2.0) mmol/L Total Bilirubin <0.1 L (0.2-1.3) mg/dL Total Protein 6.0 L (6.3-8.2) g/dL U Benzodiazepines Scrn (NotDetected) 05/28/19 05/28/19 05/28/19 Range/Units 05:19 05:49 08:37 WBC (3.8-10.6) k/uL Neutrophils # (1.3-7.7) k/uL Chloride (98-107) mmol/L BUN (7-17) mg/dL Glucose (74-99) mg/dL POC Glucose (mg/dL) 119 H (75-99) mg/dL Plasma Lactic Acid Charly 2.8 H* (0.7-2.0) mmol/L Total Bilirubin (0.2-1.3) mg/dL Total Protein (6.3-8.2) g/dL U Benzodiazepines Scrn Detected H (NotDetected) Chest x-ray: report reviewed CT Scan - head: report reviewed Thrombosis Risk Factor Assmnt - DVT/VTE Prophylaxis DVT/VTE Prophylaxis: Pharmacologic Prophylaxis ordered - Choose All That Apply Any of the Below Risk Factors Present?: Yes Other Risk Factors: No Other congenital or acquired thrombophilia - If yes, enter type in comment: No Assessment and Plan (1) Acute depression Current Visit: Yes Status: Acute Code(s): F32.9 - MAJOR DEPRESSIVE DISORDER, SINGLE EPISODE, UNSPECIFIED SNOMED Code(s): 515436289 (2) PTSD (post-traumatic stress disorder) Current Visit: Yes Status: Acute Code(s): F43.10 - POST-TRAUMATIC STRESS D ISORDER, UNSPECIFIED SNOMED Code(s): 84232638 (3) Tinea cruris Current Visit: Yes Status: Acute Code(s): B35.6 - TINEA CRURIS SNOMED Code(s): 076889767 (4) Altered mental status Current Visit: Yes Status: Acute Code(s): R41.82 - ALTERED MENTAL STATUS, UNSPECIFIED SNOMED Code(s): 039908997 (5) Lactic acidosis Current Visit: Yes Status: Acute Code(s): E87.2 - ACIDOSIS SNOMED Code(s): 72810271 (6) Overdose Current Visit: Yes Status: Acute Code(s): T50.901A - POISONING BY UNSP DRUG/MEDS/BIOL SUBST, ACCIDENTAL, INIT SNOMED Code(s): 98518358 Plan: Patient will continue intensive care unit on IV fluids, will add subcutaneous heparin for DVT prophylaxis and she is not active. Her home medications are on hold. Psych consult when entered but also put this on hold as she is not capable of speaking with him. Neurology and pulmonology consults have been ordered. She'll have Ativan ordered and Protonix for GI prophylaxis and seizure precautions. Clotrimazole cream to her abdomen twice a day. She'll remain on IV fluids. She'll be reevaluated in the next 24 hours. Chest x-ray a.m. Repeat labs in am.
[2019-05-28] MEDS: PANTOPRAZOLE 40 MG/10 ML VIAL IVP SCH (17:56)
[2019-05-28] MEDS ORDERED: Magnesium Replacement Protocol 1 EACH MISC MISCELLANE PRN (18:24)
[2019-05-28] MEDS: MAGNESIUM SULFATE-D5W PMX 1 GM in DEXTROSE/WATER 1 100ML.BAG IVPB SCH ×2 (20:30→21:41)
[2019-05-28] MEDS ORDERED: HEPARIN SODIUM,PORCINE 5,000 UNIT/ML 1 ML VIAL SQ SCH (21:00)
[2019-05-28 23:20] LABS: Glucose,Whole Blood 113 mg/dL (75-99)
[2019-05-29 05:09] LABS: Basophils % (A) 0 %; Eosinophils % (A) 0 %; HCT 37.8 % (34.0-46.0); HGB 12.4 gm/dL (11.4-16.0); Lymphocytes # (A) 1.6 k/uL (1.0-4.8); Lymphocytes % (A) 18 %; MCH 30.5 pg (25.0-35.0); MCHC 32.9 g/dL (31.0-37.0); MCV 92.7 fL (80.0-100.0); Mean Platelet Volume 6.6; Monocytes # (A) 0.4 k/uL (0-1.0); Monocytes % (A) 4 %; Neutrophils # (A) 6.9 k/uL (1.3-7.7); Neutrophils % (A) 76 %; Platelet Count 144 k/uL (150-450); RBC 4.08 m/uL (3.80-5.40); RDW 12.8 % (11.5-15.5)
[2019-05-29 05:22] LABS: African American GFR (CKD) >90 (>60 ml/min/1.73 sqM); Anion Gap 7 mmol/L; Blood Urea Nitrogen 4 mg/dL (7-17); Calcium 8.2 mg/dL (8.4-10.2); Carbon Dioxide 24 mmol/L (22-30); Chloride 107 mmol/L (98-107); Glucose 101 mg/dL (74-99); Magnesium 2.4 mg/dL (1.6-2.3); Potassium 3.4 mmol/L (3.5-5.1); Sodium 138 mmol/L (137-145)
[2019-05-29] MEDS ORDERED: Potassium Replacement Protocol 1 EACH MISC MISCELLANE PRN (06:00)
[2019-05-29] MEDS: SODIUM CHLORIDE 0.9% 1,000 ML IV SCH ×3 (08:14→20:51)
[2019-05-29] MEDS: PANTOPRAZOLE 40 MG/10 ML VIAL IVP SCH (08:45)
[2019-05-29] MEDS: POTASSIUM CHLORIDE ER 20 MEQ TAB.ER PO SCH ×2 (08:50→08:51)
[2019-05-29] MEDS: POTASSIUM CHLORIDE 10 MEQ in WATER FOR INJECTION 1 100ML.BAG IVPB SCH ×4 (08:53→13:36)
[2019-05-29] MEDS: CLOTRIMAZOLE 1% CREAM 15 GM TUBE TOPICAL SCH ×2 (10:10→20:51)
--- NOTE | 2019-05-29 14:13 | P.PN ---
Subjective This is a 33-year-old white female history of posttraumatic stress disorder and depression. Her medications have been controlled by her family, due to intentional overdose and suicide attempt in September 2018. Per her 's history, her sister and mom, who are currently at bedside, patient apparently took the 's Lamictal approximately 100 tablets of 100 mg each. This happened around 10 PM last night. She was found obtunded foaming at the mouth and sweating profusely. EMS was called she was brought to [facility] emergency room. She been admitted to the intensive care unit this time for supportive care. She is reportedly to vomit in the emergency room. So far labs only been abnormal regarding positive benzodiazepines, and abnormal lactic acid. She currently fights against restraints and is speaking somewhat. She is awake but obviously obtunded. Staff report nummular lesions to the abdomen that are erythematous with clearing centers. May 29, 2019: Patient is more arousable now. She became combative overnight. Ativan has been restarted as needed. She is maintaining her airway and arouses enough to speak slightly. Critical care is monitoring. Objective - Vital Signs Vital signs: Vital Signs Temp 99.1 F 05/29/19 12:00 Pulse 93 05/29/19 13:00 Resp 19 05/29/19 13:00 BP 126/86 05/29/19 13:00 Pulse Ox 95 05/29/19 13:00 Intake & Output 05/28/19 05/29/19 05/29/19 18:59 06:59 18:59 Intake Total 1000 1400 1000 Output Total 3430 825 510 Balance -2430 575 490 Weight 58.9 kg Intake: IV 1000 1400 1000 Magnesium Sulfate-D5w Pmx 200 1 gm In Dextrose/Water 1 100ml.bag @ 100 mls/hr IVPB Q1H LYN Rx#: [id number] Potassium Chloride 10 meq 300 In Water For Injection 1 100ml.bag @ 100 mls/hr IVPB Q1HR LYN Rx#: [id number] Sodium Chloride 0.9% 1, 1000 1200 700 000 ml @ 100 mls/hr IV . Q10H LYN Rx#:[id number] Output: Urine 3130 825 510 Emesis 300 Other: Voiding Method Indwelling Catheter Indwelling Catheter Indwelling Catheter - Exam GENERAL: Awake, obtunded, restrained white female who looks her stated age. HEAD: Atraumatic, normocephalic. EYES: Pupils equal round and slow, but reactive to light, extraocular movements intact, sclera anicteric, conjunctiva are normal. ENT:nares patent, oropharynx clear without exudates. Moist mucous membranes. NECK: Passive Normal range of motion, supple without lymphadenopathy or JVD, no thyromegaly LUNGS: Breath sounds slightly coarse to auscultation bilaterally and equal. No wheezes rales or rhonchi. HEART: Regular rate and rhythm without murmurs, rubs or gallops.S1S2 Normal ABDOMEN: Soft, nontender, normoactive bowel sounds. No guarding, no rebound. No masses appreciated. EXTREMITIES: Normal range of motion, no pitting or edema. No clubbing or cyanosis. NEUROLOGICAL: Cranial nerves II through XII grossly intact. Normal speech, normal gait. PSYCH: Patient is awake, but obtunded SKIN: Warm, Dry, normal turgor, there are white nummular lesions 3 to her abd omen approximately 2 cm diameter. Consistent with clearing tinea cruris - Labs CBC & Chem 7: 05/29/19 04:32 05/29/19 04:30 Labs: Abnormal Lab Results - Last 24 Hours (Table) 05/28/19 05/28/19 05/29/19 Range/Units 05:16 23:07 04:30 Plt Count (150-450) k/uL Potassium 3.4 L (3.5-5.1) mmol/L BUN 4 L (7-17) mg/dL Creatinine 0.46 L (0.52-1.04) mg/dL Glucose 101 H (74-99) mg/dL POC Glucose (mg/dL) 113 H (75-99) mg/dL Calcium 8.2 L (8.4-10.2) mg/dL Magnesium 2.4 H (1.6-2.3) mg/dL Lamotrigine 31.3 H* (2.0-15.0) ug/mL 05/29/19 Range/Units 04:32 Plt Count 144 L (150-450) k/uL Potassium (3.5-5.1) mmol/L BUN (7-17) mg/dL Creatinine (0.52-1.04) mg/dL Glucose (74-99) mg/dL POC Glucose (mg/dL) (75-99) mg/dL Calcium (8.4-10.2) mg/dL Magnesium (1.6-2.3) mg/dL Lamotrigine (2.0-15.0) ug/mL Microbiology - Last 24 Hours (Table) 05/28/19 07:17 Blood Culture - Preliminary Blood No Growth after 24 hours Assessment and Plan (1) Acute depression Current Visit: Yes Status: Acute Code(s): F32.9 - MAJOR DEPRESSIVE DISORDER, SINGLE EPISODE, UNSPECIFIED SNOMED Code(s): 594616934 (2) PTSD (post-traumatic stress disorder) Current Visit: Yes Status: Acute Code(s): F43.10 - POST-TRAUMATIC STRESS DISORDER, UNSPECIFIED SNOMED Code(s): 21170593 (3) Tinea cruris Current Visit: Yes Status: Acute Code(s): B35.6 - TINEA CRURIS SNOMED Code(s): 763223945 (4) Altered mental status Current Visit: Yes Status: Acute Code(s): R41.82 - ALTERED MENTAL STATUS, UNSPECIFIED SNOMED Code(s): 668523671 (5) Lactic acidosis Current Visit: Yes Status: Acute Code(s): E87.2 - ACIDOSIS SNOMED Code(s): 82403357 (6) Overdose Current Visit: Yes Status: Acute Code(s): T50.901A - POISONING BY UNSP DRUG/MEDS/BIOL SUBST, ACCIDENTAL, INIT SNOMED Code(s): 42180759 Plan: Patient will continue intensive care unit on IV fluids, Chest x-ray a.m. Repeat labs in am. Wait on psychiatric consult. Wait on recommendations from critical care. She will be reevaluated in the next 24 hours.
--- NOTE | 2019-05-29 14:33 | P.PN ---
Subjective Progress Note Date: 05/29/19 Principal diagnosis: Altered mental status secondary to Lamictal overdose. This is a 33-year-old female with history of alcohol abuse, history of substance abuse, history of posttraumatic shock disorder, history of depression, patient was found by her confused, and apparently she has been taking Xanax and drinking alcohol. Patient was brought into the ER, and she had positive drug screen for benzodiazepines and alcohol. Patient was confused, unable to give any history, had a similar presentation back in September of 2018, were and she presented at the time with suicidal ideations and in . She overdosed on multiple medications at the time, and she was admitted to a psychiatric unit. This time, there is no mention of suicidal thoughts or suicidal ideations, but clearly the patient had positive drug screen as noted above. The patient herself cannot give any history, seems to be quite confused, and not in respiratory distress. Hence the patient was admitted to the ICU, CT head and cervical spine done prior to admission to the ICU was negative. Patient was reevaluated today on 05/29/2019, feeling a bit better, had intermittent episodes of extreme agitations requiring Ativan. Patient received a dose of Ativan 1 mg just before I evaluated the patient, and she seems very calm, not verbal, follows simple instructions. She was actually in the process of having an EEG. We found out later. Yesterday that the patient overdosed on Lamictal. And the level was toxic. Poison control recommended no specific recommendation except supportive care. Patient was seen by neurology and EEG was requested, it is in the process of being performed. No evidence of any witnessed seizure activities. Her labs today are basically unremarkable including his CBC, basic metabolic profile, lamotrigine level was 31.3, and therapeutic dose is between 2 and 15. Objective - Vital Signs Vital signs: Vital Signs Temp 99.1 F 05/29/19 12:00 Pulse 93 05/29/19 13:00 Resp 19 05/29/19 13:00 BP 126/86 05/29/19 13:00 Pulse Ox 95 05/29/19 13:00 Intake & Output 05/28/19 05/29/19 05/29/19 18:59 06:59 18:59 Intake Total 1000 1400 1000 Output Total 3430 825 510 Balance -2430 575 490 Weight 58.9 kg Intake: IV 1000 1400 1000 Magnesium Sulfate-D5w Pmx 200 1 gm In Dextrose/Water 1 100ml.bag @ 100 mls/hr IVPB Q1H LYN Rx#: [id number] Potassium Chloride 10 meq 300 In Water For Injection 1 100ml.bag @ 100 mls/hr IVPB Q1HR LYN Rx#: [id number] Sodium Chloride 0.9% 1, 1000 1200 700 000 ml @ 100 mls/hr IV . Q10H LYN Rx#:[id number] Output: Urine 3130 825 510 Emesis 300 Other: Voiding Method Indwelling Catheter Indwelling Catheter Indwelling Catheter - Exam General appearance: Revealed a 33-year-old female, calm, in no form of respiratory distress. Head exam: Atraumatic, normocephalic Eye exam: PERRLA, EOMI, no icterus. ENT exam: Throat is clear. Moist mucous membranes, nasal mucosa is normal Neck exam: No neck masses, no neck rigidity, no stridor. Respiratory exam: Clear throughout, no crackles or rhonchi or wheezes, symmetrical chest expansion Cardiovascular Exam: Normal S1 and S2, no S3 gallop GI/Abdominal exam: Soft nontender no megaly no rebound no guarding Extremities exam: No clubbing edema or cyanosis. Back exam: : Unremarkable, no tenderness. Neurological exam: Calm, follows simple instructions, oriented to place and person, no gross focal neurologic deficit. Skin exam: No rashes - Labs CBC & Chem 7: 05/29/19 04:32 05/29/19 04:30 Labs: Abnormal Lab Results - Last 24 Hours (Table) 05/28/19 05/28/19 05/29/19 Range/Units 05:16 23:07 04:30 Plt Count (150-450) k/uL Potassium 3.4 L (3.5-5.1) mmol/L BUN 4 L (7-17) mg/dL Creatinine 0.46 L (0.52-1.04) mg/dL Glucose 101 H (74-99) mg/dL POC Glucose (mg/dL) 113 H (75-99) mg/dL Calcium 8.2 L (8.4-10.2) mg/dL Magnesium 2.4 H (1.6-2.3) mg/dL Lamotrigine 31.3 H* (2.0-15.0) ug/mL 05/29/19 Range/Units 04:32 Plt Count 144 L (150-450) k/uL Potassium (3.5-5.1) mmol/L BUN (7-17) mg/dL Creatinine (0.52-1.04) mg/dL Glucose (74-99) mg/dL POC Glucose (mg/dL) (75-99) mg/dL Calcium (8.4-10.2) mg/dL Magnesium (1.6-2.3) mg/dL Lamotrigine (2.0-15.0) ug/mL Microbiology - Last 24 Hours (Table) 05/28/19 07:17 Blood Culture - Preliminary Blood No Growth after 24 hours Assessment and Plan Assessment: Impression: 1 acute mental status change, secondary to telemetry gene overdose plus alcohol intoxication, and benzodiazepine overdose. 2 history of PTSD 3 history of depression 4 nonspecific lactic acidosis on presentation, resolved with hydration only. . Recommendation: Continue supportive care measures in the ICU, continue to monitor closely, continue alcohol withdrawal protocol, we'll monitor in the ICU for the next 24 hours, and likely transfer out of the ICU tomorrow. We'll continue to follow. Will likely recommend a psychiatric consultation in the next 24 hours. Time with Patient: Less than 30
--- NOTE | 2019-05-29 16:04 | P.CN ---
Psychiatric Consult - . Consult date: 05/29/19 Consult:: 05/29/19 15:52 IDENTIFYING DATA: This patient is a 33-year-old female with a chronic history of depression who currently lives with her in a house works at a store has no kids. HISTORY OF PRESENT ILLNESS: The patient brought into the hospital after drinking alcohol and a overdose of her medications. Patient was noted to the ICU for monitoring and neuro checks. As per EMR patient and family were at bedside yesterday and claimed that patient had a previous history of overdosing on medications packaged September of this year. also stated that he found the patient was obtunded and foaming at her mouth at home and was diaphoretic. Patient was attempted to be seen yesterday by psychiatry however patient was obtunded and unable to talk/be evaluated. Psychiatry was consulted for the overdose on 100 tabs X 100 mg along with Xanax and alcohol and depression. Patient was seen today and had a sitter at the bedside was agreeable to speak to service writer. Patient appeared to have difficulties with gaze and claimed that she had poor vision and was seeing blurriness. Patient states that she felt confused and was blinking her eyes several times during the conversation was unable to locate service writer in the room. Patient was attempting to cooperate with the interview however was slow to respond. Patient states that she is in the hospital because she attempted to with her overdose. She states that she is feeling "sad". Patient described family dynamic problems and also stated that he would "be better off without me". She stated that her family was treating her bad and not listening to her. When asked about her she states that her was "gone too long" from the house and not spending enough time with her. She states that prior to overdosing she was waiting for him at home as he was out with his friends and did not come home. Patient admits to depression for years. At this time patient denies any suicidal or homical ideations, intent or plan. Patient denies any auditory, visual hallucinations and denies any paranoia or delusions. As per nurse taking care of patient, states that earlier patient was wrapping a cord around her neck however was directable and stopped from doing this. PAST PSYCHIATRIC HISTORY: Patient states that she has a chronic history of depression. Patient also claimed that she has had one suicide attempt in the past in September 2018 where she overdosed. Patient does not recall being admitted to the hospital. Patient has not been admitted to mental health unit. PAST MEDICAL HISTORY: Denies ALLERGIES: as per EMR. CHEMICAL DEPENDENCY HISTORY: Patient denies any recreational substance use however does admit to drinking alcohol at 2-3 times a week 6-9 drinks.. FAMILY PSYCHIATRIC/SUBSTANCE USE HISTORY: denies SOCIAL HISTORY: Patient states that she was born and raised in [facility] and completed high school. Patient states that she currently lives in a house with her has no kids and works at [employer]. MENTAL STATUS EXAM: General Appearance: [Patient appears to be stated age is alert, directable, and attempts to cooperate. Patient appears to have poor concentration and is gazing around the room during the conversation. Poor hygiene and poor grooming Behavior: Patient is calmly lying in bed without any agitated behavior. Speech: Patient's speech is fluent and slow to respond. Mood/Affect: Patient reports their mood is "depressed", affect is congruent Suicidality/Homicidality: Patient denies having any suicidal or homicidal ideation intent or plan. Perceptions: Patient denies any auditory or visual hallucinations. Though content/process: Goal oriented and concrete thought process. Does not endorse any delusions at this time. Memory and concentration: AOX2, patient believes it is "06/26/2020". Cannot spell "WORLD" backwards. He believes Zach is president. Judgment and insight: Poor IMPRESSIONS: Major depressive disorder, recurrent, severe Alcohol use disorder PLAN: -At this time patient does meet criteria for inpatient psychiatric admission. Patient is currently a high risk for suicide and is psychiatrically unstable with poor judgment and poor impulse control. -Would recommend the following medication changes/additions: Would hold off on psychiatric medications at this time. -Continue 1:1 sitter for safety -Cannot leave AMA at this time. Patient will need a petition and certification if attempting to leave AMA. -Neurology following along -Will continue to follow along -When medically stable, patient is eligible for transfer to a psych bed when available. 05/29/19 15:58
--- NOTE | 2019-05-29 20:03 | P.PN ---
Progress Note - Text Progress Note Date: 05/29/19 SUBJECTIVE/INTERVAL EVENTS: Patient doing much better today. She is able to verbalize more clearly, and able to move her LE bilaterally. PHYSICAL EXAMINATION: VITAL SIGNS: T 99.0 HR 97 RR 18 BP 144/65 O2 sat 95% on RA GEN.: Drowsy but following most commands, cooperative HEENT: NCAT, sclera without icterus NECK: Supple SKIN AND EXTREMITIES: Warm to touch, no edema NEURO: MENTAL STATUS: Patient alert and oriented to self, place, time. Able to name the current president. Speech grossly fluent, but very limited. CRANIAL NERVES II THROUGH XII: II: Pupils are equal and reactive to light symmetrically. No afferent pupillary defect. III, IV, : No ptosis. Primary gaze with eyes down and out, roaming eyes, pt not tracking. V: Facial sensation intact from V1-3. VII. No clear facial asymmetry. XII: Tongue midline without fasciculation or atrophy. MOTOR: Normal bulk/tone. b/l UE and LE antigravity SENSORY: Grimaces to pain in all 4 extremities but no withdrawal REFLEXES: 2+ in b/l UE. Brisk in b/l LE. Toes are downgoing b/l. 4-5 beating clonus. Avinash's is absent COORDINATION: deferred GAIT: deferred DIAGNOSTIC TESTING: LABORATORY: 05/01/19: WBC 11.0 hemoglobin 14.5 platelet 196 sodium 143 potassium 3.5 chloride 111 bicarb 22 BUN 5 creatinine 0.58 glucose 135 lactic acid 2.8 AST 18 ALT 18 troponin <0.012 urinalysis neg UTox benzo positive 05/29/19: WBC 9.0 hemoglobin 12.4 platelet 144 sodium 138 potassium 3.4 chloride 107 bicarb 24 BUN 4 creatinine 0.46 glucose 101 Lamotrigine level 31.3 IMAGING: CT head and cervical spine without contrast 05/28/2019: Negative computed tomography scan of cervical spine and brain. ASSESSMENT: Ms. Nguyen is a 33 year-old woman with PMHx of anxiety brought in by ambulance for altered mental status, consulting neurology for possible seizure and benzodiazepine overdose, discovered patient overdosed on lamotrigine. Lamotrigine overdose can cause seizure including status epilepticus along with cardiac toxicity, APPEALS SPECIALIST depression. Pt at this time following commands although with significant drowsiness. Exam also showing abnormal primary gaze along with brisk reflexes in the LE, sustained clonus and upgoing toes, which all could be found in the setting of lamotrigine overdose. RECOMMENDATIONS: 1. Seizure precaution 2. neurocheck q2h 3. Routine EEG obtained; pending final result 4. Ativan 2mg IV x1 PRN if patient having any seizure-like activity, repeat if patient continues to have seizure-like activity for more than 3 minutes and repeat 3 times, and if not resolved, call Neurology 5. Low threshold for considering status epilepticus. Patient should be transferred to either [facility] or [place] if there's concern of status. 6. Neurology will sign off at this time. If routine EEG shows any seizure activity, neurology will continue to follow.
--- NOTE | 2019-05-29 23:02 | EEG ---
ELECTROENCEPHALOGRAM REPORT DATE OF PROCEDURE: 05/29/2019 ELECTROENCEPHALOGRAM (EEG) REPORT: TECHNIQUE: A routine 18-channel EEG was performed with video using the 10/20 international electrode placement system. HISTORY: Attempted suicide. Lamotrigine overdose. CURRENT MEDICATIONS: 1. Ativan. 2. Prozac. 3. Depo-Provera. STUDY DURATION: 27 minutes. Please note that the patient was drowsy or asleep for the majority of this recording. In particular, the patient oscillated between stage II sleep and then on stimulation, arousal, brief periods of wakefulness. During these periods of maximal arousal, muscle artifact was noted that limited interpretation. An excess of beta frequency activity was noted. This is not epileptiform in nature and may in part be due to medication effect. During the brief periods of maximal arousal, the background activity consists of 7-8 Hz rhythmic waveforms symmetrically distributed through both posterior quadrants. ACTIVATION: Hyperventilation: Not performed. Photic Stimulation: No driving seen. Sleep: Stages I and II sleep noted. ABNORMALITIES: During the periods of maximal arousal, intermittent diffuse 5-7 Hz polymorphic theta range slowing was seen. IMPRESSION: Limited study for the reasons mentioned above. No seizures were recorded. No epileptiform activity was present. The intermittent diffuse theta range slowing mentioned above is not epileptiform in nature. In combination with the slow background, these findings indicate mild diffuse cerebral dysfunction which may in part be due to medication effect. No seizures were recorded. No epileptiform activity was present. MMODL / IJN: [id number] /
[2019-05-30 05:02] LABS: Basophils # (A) 0.1 k/uL (0-0.2); Basophils % (A) 1 %; Eosinophils # (A) 0.1 k/uL (0-0.7); Eosinophils % (A) 1 %; HCT 38.2 % (34.0-46.0); HGB 12.3 gm/dL (11.4-16.0); Lymphocytes % (A) 30 %; MCH 30.6 pg (25.0-35.0); MCHC 32.2 g/dL (31.0-37.0); MCV 95.1 fL (80.0-100.0); Mean Platelet Volume 7.7; Monocytes # (A) 0.3 k/uL (0-1.0); Monocytes % (A) 5 %; Neutrophils # (A) 4.1 k/uL (1.3-7.7); Neutrophils % (A) 62 %; Platelet Count 142 k/uL (150-450); RBC 4.02 m/uL (3.80-5.40); WBC 6.7 k/uL (3.8-10.6)
[2019-05-30 05:50] LABS: African American GFR (CKD) >90 (>60 ml/min/1.73 sqM); Anion Gap 8 mmol/L; Blood Urea Nitrogen 5 mg/dL (7-17); Calcium 8.4 mg/dL (8.4-10.2); Carbon Dioxide 24 mmol/L (22-30); Chloride 105 mmol/L (98-107); Glucose 98 mg/dL (74-99); Potassium 3.2 mmol/L (3.5-5.1); Sodium 137 mmol/L (137-145)
[2019-05-30] MEDS ORDERED: Potassium Replacement Protocol 1 EACH MISC MISCELLANE PRN (06:07)
[2019-05-30] MEDS: POTASSIUM CHLORIDE ER 20 MEQ TAB.ER PO SCH ×2 (06:18→08:14)
[2019-05-30] MEDS: PANTOPRAZOLE 40 MG/10 ML VIAL IVP SCH (08:15)
[2019-05-30] MEDS: SODIUM CHLORIDE 0.9% 1,000 ML IV SCH ×2 (08:16→17:21)
[2019-05-30] MEDS: CLOTRIMAZOLE 1% CREAM 15 GM TUBE TOPICAL SCH ×2 (08:16→20:32)
--- NOTE | 2019-05-30 11:42 | P.PN ---
Subjective Progress Note Date: 05/30/19 Principal diagnosis: Altered mental status secondary to Lamictal overdose. This is a 33-year-old female with history of alcohol abuse, history of substance abuse, history of posttraumatic shock disorder, history of depression, patient was found by her confused, and apparently she has been taking Xanax and drinking alcohol. Patient was brought into the ER, and she had positive drug screen for benzodiazepines and alcohol. Patient was confused, unable to give any history, had a similar presentation back in September of 2018, were and she presented at the time with suicidal ideations and in 10. She overdosed on multiple medications at the time, and she was admitted to a psychiatric unit. This time, there is no mention of suicidal thoughts or suicidal ideations, but clearly the patient had positive drug screen as noted above. The patient herself cannot give any history, seems to be quite confused, and not in respiratory distress. Hence the patient was admitted to the ICU, CT head and cervical spine done prior to admission to the ICU was negative. Patient was reevaluated today on 05/29/2019, feeling a bit better, had intermittent episodes of extreme agitations requiring Ativan. Patient received a dose of Ativan 1 mg just before I evaluated the patient, and she seems very calm, not verbal, follows simple instructions. She was actually in the process of having an EEG. We found out later. Yesterday that the patient overdosed on Lamictal. And the level was toxic. Poison control recommended no specific recommendation except supportive care. Patient was seen by neurology and EEG was requested, it is in the process of being performed. No evidence of any witnessed seizure activities. Her labs today are basically unremarkable including his CBC, basic metabolic profile, lamotrigine level was 31.3, and therapeutic dose is between 2 and 15. Patient was reevaluated today on 05/30/2019, she is definitely more alert and awake today. She is very cooperative, does have poor concentration and slightly poor memory, she is calm, no evidence of agitated behavior, she knew where she was, she knew the date, she knew the name of the president, but she is slow to respond. She does report that she has a depressed mood, denies any suicidal or homicidal thoughts. Denies any hallucinations/auditory or visual. She knew quite well that Dom Fuller is the president although she told the psychiatrist it was Zach was the president. At any rate the patient has made a significant improvement over the last 24 hours, and I believe we could transfer the patient out of the ICU to a regular medical floor with a sitter until she is ready to be transferred to psychiatry. According to the psychiatrist, she does meet criteria for inpatient psychiatric admission and they recommended one-to-one sitter for safety. And would not allow the patient to leave AMA and if she decides to do so a petition will need to be filed. Objective - Vital Signs Vital signs: Vital Signs Temp 98.8 F 05/30/19 08:00 Pulse 78 05/30/19 10:00 Resp 14 05/30/19 10:00 BP 126/79 05/30/19 10:00 Pulse Ox 96 05/30/19 10:00 Intake & Output 05/29/19 05/30/19 05/30/19 18:59 06:59 18:59 Intake Total 1500 1200 400 Output Total 970 1050 1100 Balance 530 150 -700 Weight 63.4 kg Intake: IV 1500 1200 400 Potassium Chloride 10 meq 400 In Water For Injection 1 100ml.bag @ 100 mls/hr IVPB Q1HR LYN Rx#: [id number] Sodium Chloride 0.9% 1, 1100 1200 400 000 ml @ 100 mls/hr IV . Q10H LYN Rx#:[id number] Output: Urine 970 1050 1100 Other: Voiding Method Indwelling Catheter Indwelling Catheter Indwelling Catheter - Exam General appearance: Revealed a 33-year-old female, calm, in no form of respiratory distress. Head exam: Atraumatic, normocephalic Eye exam: PERRLA, EOMI, no icterus. ENT exam: Throat is clear. Moist mucous membranes, nasal mucosa is normal Neck exam: No neck masses, no neck rigidity, no stridor. Respiratory exam: Clear throughout, no crackles or rhonchi or wheezes, symmetrical chest expansion Cardiovascular Exam: Normal S1 and S2, no S3 gallop GI/Abdominal exam: Soft nontender no megaly no rebound no guarding Extremities exam: No clubbing edema or cyanosis. Back exam: : Unremarkable, no tenderness. Neurological exam: Patient is calm, slow, alert oriented 3, new for she was, she knew the date, and she knew the name of the president. She realizes that she needs to be admitted to psychiatry. She has no gross focal neurologic deficit. Skin exam: No rashes Psychiatric: Depressed mood, blunt affect, denies any suicidal or homicidal thoughts, mental status seems to be intact but slow. - Labs CBC & Chem 7: 05/30/19 04:36 05/30/19 10:37 Labs: Abnormal Lab Results - Last 24 Hours (Table) 05/30/19 05/30/19 Range/Units 04:32 04:36 Plt Count 142 L (150-450) k/uL Potassium 3.2 L (3.5-5.1) mmol/L BUN 5 L (7-17) mg/dL Microbiology - Last 24 Hours (Table) 05/28/19 07:17 Blood Culture - Preliminary Blood No Growth after 48 hours Assessment and Plan Assessment: Impression: 1 acute mental status change, secondary to Lamictal overdose plus alcohol intoxication, and benzodiazepine overdose. 2 history of PTSD 3 major affective, depressive disorder, recurrent and severe. Will definitely benefit from psychiatric inpatient admission. 4 nonspecific lactic acidosis on presentation, resolved with hydration only. . Recommendation: Continue present supportive care measures, discussed the patient's condition with the psychiatrist on the case, not quite ready to be admitted to psychiatry unit, patient will be transferred to a regular medical floor with a sitter at bedside at all times. Continue suicidal precautions, and the patient will not be allowed to leave AMA and if she does insist to do so, a petition would have to be filed. Updated family members on her condition at bedside. Time with Patient: Less than 30
--- NOTE | 2019-05-30 14:30 | P.PN ---
Subjective This is a 33-year-old white female history of posttraumatic stress disorder and depression. Her medications have been controlled by her family, due to intentional overdose and suicide attempt in September 2018. Per her 's history, her sister and mom, who are currently at bedside, patient apparently took the 's Lamictal approximately 100 tablets of 100 mg each. This happened around 10 PM last night. She was found obtunded foaming at the mouth and sweating profusely. EMS was called she was brought to [facility] emergency room. She been admitted to the intensive care unit this time for supportive care. She is reportedly to vomit in the emergency room. So far labs only been abnormal regarding positive benzodiazepines, and abnormal lactic acid. She currently fights against restraints and is speaking somewhat. She is awake but obviously obtunded. Staff report nummular lesions to the abdomen that are erythematous with clearing centers. May 29, 2019: Patient is more arousable now. She became combative overnight. Ativan has been restarted as needed. She is maintaining her airway and arouses enough to speak slightly. Critical care is monitoring. May 30, 2019: Patient is much more awake and alert today. Her is at bedside. She denies any chest pains, pressures, shortness of breath. She is complaining some mild abdominal pain. She is tolerating diet. She is aware that she will go to the psych floor since she did have an intentional suicide attempt with drug overdose at this visit. Objective - Vital Signs Vital signs: Vital Signs Temp 98.8 F 05/30/19 08:00 Pulse 78 05/30/19 10:00 Resp 14 05/30/19 10:00 BP 126/79 05/30/19 10:00 Pulse Ox 96 05/30/19 10:00 Intake & Output 05/29/19 05/30/19 05/30/19 18:59 06:59 18:59 Intake Total 1500 1200 400 Output Total 970 1050 1100 Balance 530 150 -700 Weight 63.4 kg Intake: IV 1500 1200 400 Potassium Chloride 10 meq 400 In Water For Injection 1 100ml.bag @ 100 mls/hr IVPB Q1HR LYN Rx#: [id number] Sodium Chloride 0.9% 1, 1100 1200 400 000 ml @ 100 mls/hr IV . Q10H LYN Rx#:[id number] Output: Urine 970 1050 1100 Other: Voiding Method Indwelling Catheter Indwelling Catheter Indwelling Catheter - Exam GENERAL: Awake,much more alert no longer restrained white female who looks her stated age. HEAD: Atraumatic, normocephalic. NECK: Passive Normal range of motion, supple without lymphadenopathy or JVD, no thyromegaly LUNGS: Breath sounds slightly coarse to auscultation bilaterally and equal. No wheezes rales or rhonchi. HEART: Regular rate and rhythm without murmurs, rubs or gallops.S1S2 Normal ABDOMEN: Soft, nontender, normoactive bowel sounds. No guarding, no rebound. No masses appreciated.? muscle soreness EXTREMITIES: Normal range of motion, no pitting or edema. No clubbing or cyanosis. NEUROLOGICAL: Cranial nerves II through XII grossly intact. Normal speech, normal gait. PSYCH: Patient is awake,sliglthy somnolent SKIN: Warm, Dry, normal turgor, there are white nummular lesions 3 to her abdomen approximately 2 cm diameter. Consistent with clearing tinea cruris - Labs CBC & Chem 7: 05/30/19 04:36 05/30/19 10:37 Labs: Abnormal Lab Results - Last 24 Hours (Table) 05/30/19 05/30/19 Range/Units 04:32 04:36 Plt Count 142 L (150-450) k/uL Potassium 3.2 L (3.5-5.1) mmol/L BUN 5 L (7-17) mg/dL Microbiology - Last 24 Hours (Table) 05/28/19 07:17 Blood Culture - Preliminary Blood No Growth after 48 hours Assessment and Plan (1) Acute depression Current Visit: Yes Status: Acute Code(s): F32.9 - MAJOR DEPRESSIVE DISORDER, SINGLE EPISODE, UNSPECIFIED SNOMED Code(s): 094896426 (2) PTSD (post-traumatic stress disorder) Current Visit: Yes Status: Acute Code(s): F43.10 - POST-TRAUMATIC STRESS DISORDER, UNSPECIFIED SNOMED Code(s): 86912527 (3) Tinea cruris Current Visit: Yes Status: Acute Code(s): B35.6 - TINEA CRURIS SNOMED Code(s): 405775994 (4) Altered mental status Current Visit: Yes Status: Acute Code(s): R41.82 - ALTERED MENTAL STATUS, UNSPECIFIED SNOMED Code(s): 319017027 (5) Lactic acidosis Current Visit: Yes Status: Acute Code(s): E87.2 - ACIDOSIS SNOMED Code(s): 29055494 (6) Overdose Current Visit: Yes Status: Acute Code(s): T50.901A - POISONING BY UNSP DRUG/MEDS/BIOL SUBST, ACCIDENTAL, INIT SNOMED Code(s): 11533046 Plan: Patient will go to the stepdown floor She will go to psych from there for further tx regarding her suicide attempt by overdose She will be reevaluated in the next 24 hours.
[2019-05-31] MEDS: ONDANSETRON 4 MG/2 ML VIAL IVP PRN (06:39)
[2019-05-31] MEDS: SODIUM CHLORIDE 0.9% 1,000 ML IV SCH (06:40)
[2019-05-31] MEDS ORDERED: PANTOPRAZOLE 40 MG TABLET PO SCH (07:30)
[2019-05-31] MEDS: CLOTRIMAZOLE 1% CREAM 15 GM TUBE TOPICAL SCH (09:17)
[2019-05-31 09:22] VITALS: BP 127/92; PULSE 80; RESP 14; TEMP 98
[2019-05-31 09:49] LABS: Basophils # (A) 0.1 k/uL (0-0.2); Basophils % (A) 1 %; Eosinophils # (A) 0.1 k/uL (0-0.7); Eosinophils % (A) 2 %; HCT 38.1 % (34.0-46.0); HGB 11.8 gm/dL (11.4-16.0); Lymphocytes # (A) 1.2 k/uL (1.0-4.8); Lymphocytes % (A) 19 %; MCH 29.6 pg (25.0-35.0); MCHC 30.8 g/dL (31.0-37.0); MCV 95.9 fL (80.0-100.0); Monocytes # (A) 0.3 k/uL (0-1.0); Monocytes % (A) 5 %; Neutrophils # (A) 4.6 k/uL (1.3-7.7); Neutrophils % (A) 72 %; Platelet Count 147 k/uL (150-450); RBC 3.98 m/uL (3.80-5.40); RDW 12.9 % (11.5-15.5); WBC 6.4 k/uL (3.8-10.6)
[2019-05-31 10:09] LABS: African American GFR (CKD) >90 (>60 ml/min/1.73 sqM); Anion Gap 7 mmol/L; Blood Urea Nitrogen 7 mg/dL (7-17); Calcium 8.9 mg/dL (8.4-10.2); Carbon Dioxide 26 mmol/L (22-30); Chloride 107 mmol/L (98-107); Glucose 112 mg/dL (74-99); Potassium 3.7 mmol/L (3.5-5.1); Sodium 140 mmol/L (137-145)
--- NOTE | 2019-05-31 10:59 | P.DS ---
Providers Date of admission: 05/28/19 07:02 Expected date of discharge: 05/31/19 Attending physician: Elbert Kang Consults: 05/28/19 07:02 Consult Physician Routine Consulting Provider: Noel Plaza Consult Reason/Comments: Possible overdose Do you want consulting provider notified?: Already Contacted Consult Physician Stat Consulting Provider: Kasey Garcia Consult Reason/Comments: intensive care Do you want consulting provider notified?: Yes 05/28/19 08:50 Consult Physician Stat Consulting Provider: Danay Bess Consult Reason/Comments: possible seizures, benzodiazipine overdose Do you want consulting provider notified?: Already Contacted Primary care physician: Elbert Kang - Discharge Diagnosis(es) (1) Suicidal overdose Current Visit: Yes Status: Acute (2) Acute depression Current Visit: Yes Status: Acute (3) PTSD (post-traumatic stress disorder) Current Visit: Yes Status: Acute (4) Tinea cruris Current Visit: Yes Status: Acute (5) Altered mental status Current Visit: Yes Status: Acute (6) Lactic acidosis Current Visit: Yes Status: Acute (7) Overdose Current Visit: Yes Status: Acute Hospital Course: This is a 33-year-old white female history of posttraumatic stress disorder and depression. Her medications have been controlled by her family, due to intentional overdose and suicide attempt in September 2018. Per her 's history, her sister and mom, who are currently at bedside, patient apparently took the 's Lamictal approximately 100 tablets of 100 mg each. This happened around 10 PM last night. She was found obtunded foaming at the mouth and sweating profusely. EMS was called she was brought to [facility] emergency room. She been admitted to the intensive care unit this time for supportive care. She is reportedly to vomit in the emergency room. So far labs only been abnormal regarding positive benzodiazepines, and abnormal lactic acid. She currently fights against restraints and is speaking somewhat. She is awake but obviously obtunded. Staff report nummular lesions to the abdomen that are erythematous with clearing centers. May 29, 2019: Patient is more arousable now. She became combative overnight. Ativan has been restarted as needed. She is maintaining her airway and arouses enough to speak slightly. Critical care is monitoring. May 30, 2019: Patient is much more awake and alert today. Her is at bedside. She denies any chest pains, pressures, shortness of breath. She is complaining some mild abdominal pain. She is tolerating diet. She is aware that she will go to the psych floor since she did have an intentional suicide attempt with drug overdose at this visit. 05/31/2019: Patient is doing better. She is able to get up at bedside. is at bedside. She denies any significant complaints other than feeling slightly unsteady on her feet. She was able to get up though and ambulate without significant difficulty. A certification was filled out due to her intentional suicide attempt via drug overdose. She'll be transferred to inpatient psychiatric unit for further treatment until deemed capable of being discharged. Patient Condition at Discharge: Fair Plan - Discharge Summary Discharge Rx Participant: No New Discharge Prescriptions: Continue ALPRAZolam [Xanax] 0.25 mg PO DAILY PRN PRN Reason: Anxiety FLUoxetine HCL [PROzac] 40 mg PO DAILY Medroxyprogesterone Acetate [Depo-Provera] 150 mg IM Q90D Discharge Medication List ALPRAZolam [Xanax] 0.25 mg PO DAILY PRN 05/28/19 [History] FLUoxetine HCL [PROzac] 40 mg PO DAILY 05/28/19 [History] Medroxyprogesterone Acetate [Depo-Provera] 150 mg IM Q90D 05/28/19 [History] Follow up Appointment(s)/Referral(s): Elbert Kang Jr, [Primary Care Provider] - 1 Week Discharge Disposition: TRANSFER TO PSYCH HOSP/UNIT
== END 2019-05-31 12:19 | DRG 918 ==
LOC: EC 04:58 → 2SICU 07:02
PROVIDERS: ADMIT Family Medicine; ATTEND Family Medicine
DX: T42.6X2A Poisoning by other antiepileptic and sedative-hypnotic drugs, intentional self-harm, initial encounter (principal); E87.2 Acidosis; Z78.1 Physical restraint status; F10.129 Alcohol abuse with intoxication, unspecified; B35.6 Tinea cruris; F32.9 Major depressive disorder, single episode, unspecified; T42.4X2A Poisoning by benzodiazepines, intentional self-harm, initial encounter; T51.0X2A Toxic effect of ethanol, intentional self-harm, initial encounter; R40.2352 Coma scale, best motor response, localizes pain, at arrival to emergency department; R40.2132 Coma scale, eyes open, to sound, at arrival to emergency department; R40.2232 Coma scale, best verbal response, inappropriate words, at arrival to emergency department; F41.9 Anxiety disorder, unspecified; F43.10 Post-traumatic stress disorder, unspecified; F17.200 Nicotine dependence, unspecified, uncomplicated; Z71.6 Tobacco abuse counseling; Y90.2 Blood alcohol level of 40-59 mg/100 ml; Z91.5 Personal history of self-harm; Z79.899 Other long term (current) drug therapy; Z82.49 Family history of ischemic heart disease and other diseases of the circulatory system; Y92.009 Unspecified place in unspecified non-institutional (private) residence as the place of occurrence of the external cause
CPT/HCPCS: 36415; 70450; 71045; 72125; 80048; 80053; 80175; 80306; 80320; 80329; 81003; 81025; 83520; 83605; 83735; 84132; 84484; 85025; 87040; 93005; 95819; 96361; 96365; 96375; 99291

== ENCOUNTER 2019-10-07 01:38 | Emergency (ER) | payer OTHER ==
[2019-10-07] MEDS ORDERED: SODIUM CHLORIDE 0.9% 1,000 ML IV ONE (02:44)
[2019-10-07] MEDS ORDERED: FAMOTIDINE 20 MG/2 ML VIAL IV STA (02:44)
[2019-10-07 03:17] LABS: Appearance,Urine Clear (Clear); Bilirubin,Urine Negative (Negative); Blood,Urine Negative (Negative); Color,Urine Light Yellow; Glucose,Urine (UA) Negative (Negative); Ketones,Urine Negative (Negative); Leukocyte Esterase,Urine Negative (Negative); Nitrite,Urine Negative (Negative); PH, Urine 5.5 (5.0-8.0); Protein,Urine Negative (Negative); Specific Gravity,Urine 1.005 (1.001-1.035); Urobilinogen,Urine <2.0 mg/dL (<2.0)
[2019-10-07 03:27] LABS: Basophils # (A) 0.1 k/uL (0-0.2); Basophils % (A) 1 %; Eosinophils # (A) 0.1 k/uL (0-0.7); Eosinophils % (A) 1 %; HCT 40.8 % (34.0-46.0); HGB 12.9 gm/dL (11.4-16.0); Lymphocytes # (A) 1.4 k/uL (1.0-4.8); Lymphocytes % (A) 21 %; MCH 28.4 pg (25.0-35.0); MCHC 31.7 g/dL (31.0-37.0); MCV 89.6 fL (80.0-100.0); Mean Platelet Volume 7.8; Monocytes # (A) 0.3 k/uL (0-1.0); Monocytes % (A) 4 %; Neutrophils # (A) 4.5 k/uL (1.3-7.7); Neutrophils % (A) 70 %; Platelet Count 166 k/uL (150-450); RBC 4.55 m/uL (3.80-5.40); RDW 12.7 % (11.5-15.5); WBC 6.5 k/uL (3.8-10.6)
[2019-10-07 03:30] LABS: Amphetamine Screen,Urine Not Detected (NotDetected); Barbiturate Screen,Urine Not Detected (NotDetected); Benzodiazepines Screen,Urine Not Detected (NotDetected); Cocaine Screen,Urine Not Detected (NotDetected); Methadone Screen, Urine Not Detected (NotDetected); Opiate Screen,Urine Not Detected (NotDetected); Oxycodone Screen, Urine Not Detected (NotDetected); Phencyclidine Screen,Urine Not Detected (NotDetected); Tricyclic Antidepressant,Urine Not Detected (NotDetected); Urn Cannabinoid Scrn Not Detected (NotDetected)
[2019-10-07 03:32] LABS: ALT 29 U/L (4-34); AST 33 U/L (14-36); Acetaminophen <10.0 ug/mL; African American GFR (CKD) >90 (>60 ml/min/1.73 sqM); Albumin 3.9 g/dL (3.5-5.0); Alkaline Phosphatase 57 U/L (38-126); Anion Gap 10 mmol/L; Blood Urea Nitrogen 8 mg/dL (7-17); Calcium 8.7 mg/dL (8.4-10.2); Carbon Dioxide 22 mmol/L (22-30); Chloride 108 mmol/L (98-107); Glucose 90 mg/dL (74-99); Non-African American GFR(CKD) >90 (>60 ml/min/1.73 sqM); Salicylate <1.0 mg/dL; Sodium 140 mmol/L (137-145); Total Bilirubin 0.3 mg/dL (0.2-1.3); Total Protein 6.2 g/dL (6.3-8.2)
--- NOTE | 2019-10-07 04:15 | ED ---
General Adult HPI - General Source: EMS Mode of arrival: EMS Limitations: no limitations <Isabella Hu - Last Filed: 10/07/19 18:08> <Rosa Bertrand - Last Filed: 10/13/19 18:21> - General Chief complaint: Psychiatric Symptoms Stated complaint: Mental Health - overdose Time Seen by Provider: 10/07/19 01:41 - History of Present Illness Initial comments: 34-year-old female patient presents to the emergency department today for evaluation after taking a handful of ibuprofen. Patient was drinking alcohol tonight and admits to drinking at least 1 bottle of wine. She states that she is feeling a lot of pressure because they just sold a house and bought a new one. States they were moving today. She states that she was feeling overwhelmed and took a handful of ibuprofen 200mg. She states that she was not trying to kill herself, she does not know what she was doing. Patient does have history of bipolar and suicide attempt in May 2019. Patient is currently feeling well. Denies any physical symptoms or complaints. Patient denies any recent rash, fever, chills, shortness breath, chest pain, abdominal pain, nausea, vomiting, diarrhea, constipation, back pain, numbness, tingling, dizziness, weakness, hematuria, dysuria, urinary urgency, urinary frequency, headache, visual changes, or any other complaints. (Isabella Hu) - Related Data Home Medications Medication Instructions Recorded Confirmed ALPRAZolam [Xanax] 0.25 mg PO DAILY PRN 05/28/19 05/28/19 FLUoxetine HCL [PROzac] 40 mg PO DAILY 05/28/19 05/28/19 Medroxyprogesterone Acetate 150 mg IM Q90D 05/28/19 05/28/19 [Depo-Provera] Allergies Allergy/AdvReac Type Severity Reaction Status Date / Time No Known Allergies Allergy Verified 10/07/19 01:55 Review of Systems ROS Other: All systems not noted in ROS Statement are negative. <Isabella Hu - Last Filed: 10/07/19 18:08> ROS Other: All systems not noted in ROS Statement are negative. <Rosa Bertrand - Last Filed: 10/13/19 18:21> ROS Statement: Those systems with pertinent positive or pertinent negative responses have been documented in the HPI. Past Medical History Past Medical History: Skin Disorder Additional Past Medical History / Comment(s): anxiety History of Any Multi-Drug Resistant Organisms: None Reported Past Surgical History: No Surgical Hx Reported Past Anesthesia/Blood Transfusion Reactions: Unable to Obtain Additional Past Anesthesia/Blood Transfusion Reaction / Comment(s): Pt has never had surgery. Past Psychological History: Anxiety, Bipolar Smoking Status: Current every day smoker Past Alcohol Use History: Occasional Past Drug Use History: None Reported - Past Family History Father Family Medical History: Coronary Artery Disease (CAD) Additional Family Medical History / Comment(s): Father has had coronary stents/CABG Mother Family Medical History: No Reported History Additional Family Medical History / Comment(s): Mother is healthy. <Isabella Hu M - Last Filed: 10/07/19 18:08> General Exam Limitations: no limitations General appearance: alert, in no apparent distress, other (This is a well- developed, well-nourished adult female patient in no acute distress. Vital signs upon presentation are temperature 99.0F, pulse 107, respirations 18, blood pressure 130/76, pulse ox 98% on room air.) Eye exam: Present: normal appearance, PERRL, EOMI. Absent: scleral icterus, conjunctival injection, periorbital swelling ENT exam: Present: normal exam, normal oropharynx, mucous membranes moist Respiratory exam: Present: normal lung sounds bilaterally. Absent: respiratory distress, wheezes, rales, rhonchi, stridor Cardiovascular Exam: Present: regular rate, normal rhythm, normal heart sounds. Absent: systolic murmur, diastolic murmur, rubs, gallop, clicks GI/Abdominal exam: Present: soft, normal bowel sounds. Absent: distended, tenderness, guarding, rebound, rigid Neurological exam: Present: alert, oriented X3, CN II-XII intact Psychiatric exam: Present: normal affect, normal mood. Absent: homicidal ideation Skin exam: Present: warm, dry, intact, normal color. Absent: rash <Isabella Hu M - Last Filed: 10/07/19 18:08> Course Vital Signs 10/07/19 10/07/19 10/07/19 01:44 02:41 04:37 Temperature 99 F 98.6 F Pulse Rate 107 H 99 Respiratory 18 17 Rate Blood Pressure 130/76 116/65 O2 Sat by Pulse 98 98 Oximetry 10/07/19 10/07/19 05:50 11:54 Temperature 97.9 F 97.9 F Pulse Rate 88 88 Respiratory 18 18 Rate Blood Pressure 118/61 118/61 O2 Sat by Pulse 97 97 Oximetry EKG Findings - EKG Comments: EKG Findings:: EKG obtained at 0309 shows normal sinus rhythm. Ventricular rate is 92, MI interval 126, QRS duration 76, QT 378, QTC 467. No evidence of ST elevation or depression. <Isabella Hu - Last Filed: 10/07/19 18:08> Medical Decision Making - Lab Data Result diagrams: 10/07/19 02:50 10/07/19 02:50 <Isabella Hu - Last Filed: 10/07/19 18:08> - Lab Data Result diagrams: 10/07/19 02:50 10/07/19 02:50 <Rosa Bertrand - Last Filed: 10/13/19 18:21> - Medical Decision Making 34-year-old female patient presented to the emergency department today for evaluation after taking a handful of ibuprofen. Patient is intoxicated with alcohol level of 220. Labs reviewed and are unremarkable. Patient did have a vomiting episode at home with presence of pills. Poison control recommended monitoring until 7 AM. Patient is not sober until 9:30 and then will be evaluated by emergency psychiatric services. Patient is aware of this plan and is agreeable and cooperative. Care handed off to Dr. Alicea at 0450. (Isabella Hu) The patient was signed out to me after EPS evaluation. They believe the patient is stable for discharge home. Return to the ED for any new or worsening symptoms, (Rosa Bertrand) - Lab Data Lab Results 10/07/19 10/07/19 10/07/19 Range/Units 02:50 02:50 02:59 WBC 6.5 (3.8-10.6) k/uL RBC 4.55 (3.80-5.40) m/uL Hgb 12.9 (11.4-16.0) gm/dL Hct 40.8 (34.0-46.0) % MCV 89.6 (80.0-100.0) fL MCH 28.4 (25.0-35.0) pg MCHC 31.7 (31.0-37.0) g/dL RDW 12.7 (11.5-15.5) % Plt Count 166 (150-450) k/uL Neutrophils % 70 % Lymphocytes % 21 % Monocytes % 4 % Eosinophils % 1 % Basophils % 1 % Neutrophils # 4.5 (1.3-7.7) k/uL Lymphocytes # 1.4 (1.0-4.8) k/uL Monocytes # 0.3 (0-1.0) k/uL Eosinophils # 0.1 (0-0.7) k/uL Basophils # 0.1 (0-0.2) k/uL Sodium 140 (137-145) mmol/L Potassium 4.0 (3.5-5.1) mmol/L Chloride 108 H (98-107) mmol/L Carbon Dioxide 22 (22-30) mmol/L Anion Gap 10 mmol/L BUN 8 (7-17) mg/dL Creatinine 0.61 (0.52-1.04) mg/dL Est GFR (CKD-EPI)AfAm >90 (>60 ml/min/1.73 sqM) Est GFR (CKD-EPI)NonAf >90 (>60 ml/min/1.73 sqM) Glucose 90 (74-99) mg/dL Calcium 8.7 (8.4-10.2) mg/dL Total Bilirubin 0.3 (0.2-1.3) mg/dL AST 33 (14-36) U/L ALT 29 (4-34) U/L Alkaline Phosphatase 57 (38-126) U/L Total Protein 6.2 L (6.3-8.2) g/dL Albumin 3.9 (3.5-5.0) g/dL Urine Color Light Yellow Urine Appearance Clear (Clear) Urine pH 5.5 (5.0-8.0) Ur Specific [place] 1.005 (1.001-1.035) Urine Protein Negative (Negative) Urine Glucose (UA) Negative (Negative) Urine Ketones Negative (Negative) Urine Blood Negative (Negative) Urine Nitrite Negative (Negative) Urine Bilirubin Negative (Negative) Urine Urobilinogen <2.0 (<2.0) mg/dL Ur Leukocyte Esterase Negative (Negative) Salicylates <1.0 mg/dL Urine Opiates Screen Not Detected (NotDetected) Ur Oxycodone Screen Not Detected (NotDetected) Urine Methadone Screen Not Detected (NotDetected) Ur Propoxyphene Screen Not Detected (NotDetected) Acetaminophen <10.0 ug/mL Ur Barbiturates Screen Not Detected (NotDetected) U Tricyclic Antidepress Not Detected (NotDetected) Ur Phencyclidine Scrn Not Detected (NotDetected) Ur Amphetamines Screen Not Detected (NotDetected) U Methamphetamines Scrn Not Detected (NotDetected) U Benzodiazepines Scrn Not Detected (NotDetected) Urine Cocaine Screen Not Detected (NotDetected) U Marijuana (THC) Screen Not Detected (NotDetected) Disposition <Isabella Hu - Last Filed: 10/07/19 18:08> Is patient prescribed a controlled substance at d/c from ED?: No Time of Disposition: 11:51 <Rosa Bertrand - Last Filed: 10/13/19 18:21> Clinical Impression: Acute depression, Alcohol intoxication Disposition: HOME SELF-CARE Condition: Stable Additional Instructions: Please follow up with your primary care doctor in 2 to 4 days. Call to make an appointment to follow up with [facility]. Return to the emergency room for any worsening symptoms Referrals: Elbert Kang Jr, [Primary Care Provider] - 1-2 days
[2019-10-07 05:51] VITALS: BP 118/61; PULSE 88; RESP 18; TEMP 97.9
== END 2019-10-07 11:55 | disposition home or self-care (01) ==
LOC: EC 01:38
DX: F10.129 Alcohol abuse with intoxication, unspecified (principal); F32.9 Major depressive disorder, single episode, unspecified; F41.9 Anxiety disorder, unspecified; F17.200 Nicotine dependence, unspecified, uncomplicated; Z79.899 Other long term (current) drug therapy
CPT/HCPCS: 36415; 80053; 80306; 80329; 81003; 82075; 83520; 85025; 93005; 96361; 96374; 99284

== ENCOUNTER → 2020-07-09 | Outpatient (CLI) | payer BC ==
--- NOTE | 2020-07-09 11:06 | XR ---
EXAMINATION TYPE: XR shoulder complete RT DATE OF EXAM: 07/09/2020 CLINICAL HISTORY: pain TECHNIQUE: Three views of the right shoulder are obtained. COMPARISON: None FINDINGS: There is no acute fracture/dislocation evident. The acromioclavicular and glenohumeral alexandra int spaces appear within normal limits. The visualized ribs are intact and unremarkable. IMPRESSION: 1. There is no acute fracture or dislocation. ICD 10 NO FRACTURE, INITIAL EVALUATION
== END | disposition home or self-care (01) ==
LOC: RADXRMAIN 10:33
PROVIDERS: ATTEND Family Medicine
DX: M25.511 Pain in right shoulder (principal)

== ENCOUNTER 2021-10-05 10:54 | Emergency (ER) | payer BC ==
[2021-10-05 11:19] VITALS: RESP 18
--- NOTE | 2021-10-05 11:46 | ED ---
General Adult HPI - General Chief complaint: Extremity Injury, Upper Stated complaint: numbness & discoloration in finger Time Seen by Provider: 10/05/21 11:35 Source: patient, RN notes reviewed, old records reviewed Mode of arrival: ambulatory Limitations: no limitations - History of Present Illness Initial comments: Well-appearing 36-year-old female presents ambulatory to the emergency room with complaints of numbness and tingling and discoloration of her fingers of her right hand since 0830 today. Denies any injury. She states she does experience cold intolerance in her hands and feet intermittently. She has full range of motion of the hand and denies any pain. She is concerned for a blood clot in her arm. She is a half a pack a day smoker. She does have history of anxiety. -: hour(s) Location: right, upper extremity (hand) Severity scale (1-10): 0 Consistency: intermittent Associated Symptoms: denies other symptoms Treatments Prior to Arrival: none - Related Data Home Medications Medication Instructions Recorded Confirmed Medroxyprogesterone Acetate 150 mg IM Q90D 05/28/19 10/05/21 [Depo-Provera] Ergocalciferol [Vitamin D2 (1250 1,250 mcg PO MO 10/05/21 10/05/21 Mcg = 46650 Iu)] QUEtiapine [SEROquel] 25 mg PO HS 10/05/21 10/05/21 Venlafaxine HCl [Effexor XR] 75 mg PO DAILY 10/05/21 10/05/21 Allergies Allergy/AdvReac Type Severity Reaction Status Date / Time No Known Allergies Allergy Verified 10/05/21 11:52 Review of Systems ROS Statement: Those systems with pertinent positive or pertinent negative responses have been documented in the HPI. ROS Other: All systems not noted in ROS Statement are negative. Past Medical History Past Medical History: Skin Disorder Additional Past Medical History / Comment(s): anxiety History of Any Multi-Drug Resistant Organisms: None Reported Past Surgical History: No Surgical Hx Reported Past Anesthesia/Blood Transfusion Reactions: Unable to Obtain Additional Past Anesthesia/Blood Transfusion Reaction / Comment(s): Pt has never had surgery. Past Psychological History: Anxiety, Bipolar, Depression Smoking Status: Current every day smoker Past Alcohol Use History: Occasional Past Drug Use History: None Reported - Past Family History Father Family Medical History: Coronary Artery Disease (CAD) Additional Family Medical History / Comment(s): Father has had coronary stents/CABG Mother Family Medical History: No Reported History Additional Family Medical History / Comment(s): Mother is healthy. General Exam Limitations: no limitations General appearance: alert, in no apparent distress Eye exam: Present: normal appearance, PERRL, EOMI. Absent: scleral icterus, conjunctival injection, periorbital swelling, periorbital tenderness Pupils: Present: normal accommodation Neck exam: Present: normal inspection, full ROM. Absent: tenderness, meningismus Respiratory exam: Present: normal lung sounds bilaterally Cardiovascular Exam: Present: regular rate Extremities exam: Present: normal capillary refill. Absent: tenderness, pedal edema Right Forearm Wrist exam: Present: full ROM. Absent: tenderness, swelling, ecchymosis, erythema, tenderness over anatomical snuff box Hand Wrist exam: Present: full ROM, dislocation (digits dusky, capillary refill less than 2 seconds), other (skin warm and dry). Absent: tenderness, swelling Neuro motor exam: Present: wrist extension intact, thumb IP flexion intact, thumb adduction intact, fingers 2-5 abduction intact Neurosensory exam: Present: 2-point discrimination, radial nerve intact, ulnar nerve intact, median nerve intact Vascular: Present: normal capillary refill, radial pulse, ulnar pulse Neurological exam: Present: alert, oriented X3 Psychiatric exam: Present: normal affect, normal mood, anxious Skin exam: Present: warm, dry, intact, normal color. Absent: rash, diaphoretic, erythema Course Vital Signs 10/05/21 10/05/21 11:15 13:19 Temperature 98.6 F 98.4 F Pulse Rate 84 71 Respiratory 18 18 Rate Blood Pressure 155/66 151/98 O2 Sat by Pulse 99 99 Oximetry Medical Decision Making - Medical Decision Making 36-year-old female presents with complaints of numbness and tingling and discoloration of her fingers of her right hand since 0830 today. She does experience cold intolerance in her hands and feet intermittently. She has full range of motion of the hand and denies any pain. Radial and ulnar pulses are present and the hand is warm with capillary refill less than 2 seconds. Ultrasound was negative for DVT or superficial vein thrombosis. She states that the symptoms are intermittent and cold exacerbates her symptoms. She was directed to stop smoking as this causes vasoconstriction. This is likely raynaud's phenomenon and the patient was referred to her primary care doctor for continuation of care and possible initiation of calcium channel blockers. Return to the emergency room with any new or worsening symptoms. I did speak to the patient and explained that if the hand becomes cold or painful to return to the emergency room. Case discussed with Dr. Galarza Disposition Clinical Impression: Raynauds phenomenon Disposition: HOME SELF-CARE Condition: Good Instructions (If sedation given, give patient instructions): Raynaud Disease (ED) Additional Instructions: Follow- up with your primary care doctor this week. Return to the emergency room with any new or concerning symptoms. Is patient prescribed a controlled substance at d/c from ED?: No Referrals: Elbert Kang Jr, [Primary Care Provider] - 1-2 days Time of Disposition: 13:23
--- NOTE | 2021-10-05 13:04 | US ---
EXAMINATION TYPE: US venous doppler duplex UE RT DATE OF EXAM: 10/05/2021 COMPARISON: NONE CLINICAL HISTORY: numbness and discolored fingers. Symptoms of right fingers numbness, blanching, the n blue and black discoloration today without trauma to hand. Patient states cold weather exacerbates symptoms along with cold feet. Palpable radial and ulnar pulses right arm. SIDE PERFORMED: right Right Arm: Negative for Superficial Vein Thrombosis Left Arm: IMPRESSION: No evidence for DVT or SVT
[2021-10-05 13:24] VITALS: BP 151/98; PULSE 71; TEMP 98.4
== END 2021-10-05 13:29 | disposition home or self-care (01) ==
LOC: EC 10:54
DX: I73.00 Raynaud's syndrome without gangrene (principal); F31.9 Bipolar disorder, unspecified; F41.9 Anxiety disorder, unspecified; F17.200 Nicotine dependence, unspecified, uncomplicated
CPT/HCPCS: 99284

== ENCOUNTER 2023-07-01 14:04 | Emergency (ER) | payer BC ==
--- NOTE | 2023-07-01 15:51 | ED ---
SOB HPI - General Chief Complaint: Shortness of Breath Stated Complaint: GERARD Time Seen by Provider: 07/01/23 15:05 Source: patient Mode of arrival: ambulatory Limitations: no limitations - History of Present Illness Initial Comments: This patient is a 37-year-old woman who presents to have evaluation for shortness of breath that has been going on little over a week. She states that she was not able to get into see her physician so she went to [facility]. She states she was diagnosed with bronchitis, she was given course of antibiotics, steroid and a cough suppressant though she is having very little cough. She states that she took a week of the treatments but is not really feeling any better. Patient denies fever or chills. No chest pain. She states the cough is just minimal and nonproductive. No congestion or sore throat. MD Complaint: shortness of breath Onset/Timin -: week(s) Severity scale (1-10): 0 Consistency: constant Improves With: nothing Worsens With: nothing Associated Symptoms: cough Treatments Prior to Arrival: none - Related Data Home Oxygen Therapy: No Home Medications Medication Instructions Recorded Confirmed Medroxyprogesterone Acetate 150 mg IM Q84D 05/28/19 07/01/23 [Depo-Provera] Ergocalciferol [Vitamin D2 (1250 1,250 mcg PO MO 10/05/21 07/01/23 Mcg = 68315 Iu)] Amoxic-Pot Clav 875-125Mg 1 tab PO BID 07/01/23 07/01/23 [Augmentin 875-125] Benzonatate [Tessalon Perles] 100 mg PO BID 07/01/23 07/01/23 QUEtiapine [SEROquel] 25 mg PO HS 07/01/23 07/01/23 Venlafaxine HCl [Effexor XR] 150 mg PO DAILY 07/01/23 07/01/23 Previous Rx's Medication Instructions Recorded Albuterol Inhaler [Ventolin Hfa 2 puff INHALATION Q6HR PRN #1 each 07/01/23 Inhaler] predniSONE 60 mg PO DAILY #30 tab 07/01/23 Allergies Allergy/AdvReac Type Severity Reaction Status Date / Time No Known Allergies Allergy Verified 07/01/23 16:05 Review of Systems ROS Statement: Those systems with pertinent positive or pertinent negative responses have been documented in the HPI. ROS Other: All systems not noted in ROS Statement are negative. Constitutional: Denies: fever, chills ENT: Denies: throat pain, congestion Respiratory: Reports: as per HPI, cough, dyspnea Cardiovascular: Denies: chest pain, palpitations, dyspnea on exertion, orthopnea, edema, syncope Gastrointestinal: Denies: abdominal pain, vomiting, diarrhea Genitourinary: Denies: dysuria, hematuria Musculoskeletal: Denies: back pain Skin: Denies: rash Neurological: Denies: headache, weakness Past Medical History Past Medical History: Skin Disorder Additional Past Medical History / Comment(s): anxiety History of Any Multi-Drug Resistant Organisms: None Reported Past Surgical History: No Surgical Hx Reported, Orthopedic Surgery Additional Past Surgical History / Comment(s): rt shoulder 2020 Past Anesthesia/Blood Transfusion Reactions: Unable to Obtain Additional Past Anesthesia/Blood Transfusion Reaction / Comment(s): Pt has never had surgery. Past Psychological History: Anxiety, Bipolar, Depression Smoking Status: Current every day smoker Past Alcohol Use History: Occasional Past Drug Use History: None Reported - Past Family History Father Family Medical History: Coronary Artery Disease (CAD) Additional Family Medical History / Comment(s): Father has had coronary stents/CABG Mother Family Medical History: No Reported History Additional Family Medical History / Comment(s): Mother is healthy. General Exam Limitations: no limitations General appearance: alert, in no apparent distress Head exam: Present: atraumatic, normocephalic Eye exam: Present: normal appearance. Absent: scleral icterus, conjunctival injection ENT exam: Present: normal oropharynx Neck exam: Present: normal inspection Respiratory exam: Present: wheezes (Trace expiratory wheeze). Absent: respiratory distress, rales, rhonchi, stridor, accessory muscle use, decreased breath sounds Cardiovascular Exam: Present: regular rate, normal rhythm, normal heart sounds. Absent: systolic murmur, diastolic murmur, rubs, gallop GI/Abdominal exam: Present: soft. Absent: distended, tenderness, guarding, rebound, rigid, mass Extremities exam: Present: normal inspection, normal capillary refill. Absent: pedal edema, calf tenderness Back exam: Present: normal inspection. Absent: CVA tenderness (R), CVA tenderness (L) Neurological exam: Present: alert Skin exam: Present: warm, dry, intact, normal color. Absent: rash Course Vital Signs 07/01/23 07/01/23 07/01/23 14:29 15:12 15:16 Temperature 98.3 F Pulse Rate 84 87 Respiratory 18 20 20 Rate Blood Pressure 145/97 148/95 O2 Sat by Pulse 98 100 Oximetry 07/01/23 17:53 Temperature 98 F Pulse Rate 75 Respiratory 18 Rate Blood Pressure 130/97 O2 Sat by Pulse 98 Oximetry Medical Decision Making - Medical Decision Making The patient had chest x-ray which I interpreted as being negative for acute infiltrate, pneumothorax. Was pt. sent in by a medical professional or institution (, PA, PHARMACY MANAGER, urgent care, hospital, or assisted...) When possible be specific @ -[No] Did you speak to anyone other than the patient for history (EMS, parent, family, police, friend...)? What history was obtained from this source @ -[No] Did you review nursing and triage notes (agree or disagree)? Why? @ -[I reviewed and agree with nursing and triage notes] Were old charts reviewed (outside hosp., previous admission, EMS record, old EKG, old radiological studies, urgent care reports/EKG's, assisted records)? Report findings @ -[No old charts were reviewed] Differential Diagnosis (chest pain, altered mental status, abdominal pain women, abdominal pain men, vaginal bleeding, weakness, fever, dyspnea, syncope, headache, dizziness, GI bleed, back pain, seizure, CVA, palpatations, mental health, musculoskeletal)? @ -[Differential Dyspnea: Coronary syndrome, arrhythmia, tamponade, asthma, COPD, pulmonary embolism, pneumonia, pneumothorax, pulmonary effusion, anaphylaxis, diabetic ketoacidosis, flailed chest, pulmonary contusion, diaphragmatic rupture, anemia, neuromuscular, this is not meant to be an all-inclusive list. EKG interpreted by me (3pts min.). @ -[I interpreted As above] X-rays interpreted by me (1pt min.). @ -[I interpreted as above CT interpreted by me (1pt min.). @ -[None done] U/S interpreted by me (1pt. min.). @ -[None done] What testing was considered but not performed or refused? (CT, X-rays, U/S, labs)? Why? @ -[None] What meds were considered but not given or refused? Why? @ -[None] Did you discuss the management of the patient with other professionals (professionals i.e. , PA, PHARMACY MANAGER, lab, RT, psych nurse, social science teacher, mba internship, teacher, accounts officer, case fitter)? Give summary @ -[No] Was smoking cessation discussed for >3mins.? @ -[No] Was critical care preformed (if so, how long)? @ -[No] Were there social determinants of health that impacted care today? How? (Homelessness, low income, unemployed, alcoholism, drug addiction, transportation, low edu. Level, literacy, decrease access to med. care, senior living, rehab)? @ -[No] Was there de-escalation of care discussed even if they declined (Discuss DNR or withdrawal of care, Hospice)? DNR status @ -[No] What co-morbidities impacted this encounter? (DM, HTN, Smoking, COPD, CAD, Cancer, CVA, ARF, Chemo, Hep., AIDS, mental health diagnosis, sleep apnea, morbid obesity)? @ -[None] Was patient admitted / discharged? Hospital course, mention meds given and route, prescriptions, significant lab abnormalities, going to OR and other pertinent info. @ -[disCharged Undiagnosed new problem with uncertain prognosis? @ -[No] Drug Therapy requiring intensive monitoring for toxicity (Heparin, Nitro, Insulin, Cardizem)? @ -[No] Were any procedures done? @ -[No] Diagnosis/symptom? @ -[Acute bronchitis Hypertension Acute, or Chronic, or Acute on Chronic? @ -[Acute Uncomplicated (without systemic symptoms) or Complicated (systemic symptoms)? @ -[Uncomplicated Side effects of treatment? @ -[No] Exacerbation, Progression, or Severe Exacerbation? @ -[No] Poses a threat to life or bodily function? How? (Chest pain, [place], [place], pneumonia, PE, COPD, DKA, ARF, appy, cholecystitis, CVA, Diverticulitis, Homicidal, Suicidal, threat to staff... and all critical care pts) @ -[No] - Lab Data Lab Results 07/01/23 Range/Units 15:55 Influenza Type A (PCR) Not Detected (Not Detectd) Influenza Type B (PCR) Not Detected (Not Detectd) RSV (PCR) Not Detected (Not Detectd) SARS-CoV-2 (PCR) Not Detected (Not Detectd) - EKG Data -: EKG Interpreted by Me EKG shows normal: sinus rhythm, axis (Normal), QRS complexes (Normal), ST-T waves (Normal) Rate: normal (Rate 70 bpm) Disposition Clinical Impression: Bronchitis, Hypertension Disposition: HOME SELF-CARE Condition: Good Instructions (If sedation given, give patient instructions): Acute Bronchitis (ED), Hypertension (ED) Prescriptions: predniSONE 60 mg PO DAILY #30 tab Albuterol Inhaler [Ventolin Hfa Inhaler] 2 puff INHALATION Q6HR PRN #1 each PRN Reason: Wheezing Is patient prescribed a controlled substance at d/c from ED?: No Referrals: Elbert Kang Jr, [Primary Care Provider] - 1-2 days
--- NOTE | 2023-07-01 16:05 | XR ---
EXAMINATION TYPE: XR chest 2V DATE OF EXAM: 07/01/2023 COMPARISON: 05/28/2019 HISTORY: 37 year-old female shortness of breath, dyspnea TECHNIQUE: PA and lateral views FINDINGS: The cardiomediastinal silhouette, aorta, and pulmonary vasculature are within normal limits. Mild hyp erinflation. Lungs and pleural spaces are clear. IMPRESSION: Mild hyperinflation probably related to depth of inspiration. There could be underlying asthma. No ac josie process seen.
[2023-07-01 18:04] VITALS: BP 130/97; PULSE 75; RESP 18; TEMP 98
== END 2023-07-01 18:05 | disposition home or self-care (01) ==
LOC: EC 14:04
DX: J20.9 Acute bronchitis, unspecified (principal); I10 Essential (primary) hypertension; F41.9 Anxiety disorder, unspecified; F31.9 Bipolar disorder, unspecified; F17.200 Nicotine dependence, unspecified, uncomplicated; Z79.899 Other long term (current) drug therapy; Z20.822 Contact with and (suspected) exposure to COVID-19
CPT/HCPCS: 71046; 87636; 93005; 99285